=== PATIENT | female | born 1980 | race Caucasian/White ===

== ENCOUNTER → 2023-07-26 | Outpatient (BNV) | payer OTHER, SELFPAY | PROVIDERS: PCP Internal Medicine; Visit Provider Internal Medicine Nephrology | DX: N18.6 End stage renal disease (principal) | CPT/HCPCS: 90962 ==

== ENCOUNTER → 2023-08-26 | Outpatient (BNV) | payer OTHER, SELFPAY | PROVIDERS: PCP Internal Medicine; Visit Provider Internal Medicine Nephrology | DX: N18.6 End stage renal disease (principal) | CPT/HCPCS: 90961 ==

== ENCOUNTER → 2023-09-24 | Outpatient (BNV) | payer OTHER, SELFPAY | PROVIDERS: PCP Internal Medicine; Visit Provider Internal Medicine Nephrology | DX: N18.6 End stage renal disease (principal) | CPT/HCPCS: 90962 ==

== ENCOUNTER → 2023-10-25 | Outpatient (BNV) | payer OTHER, SELFPAY | PROVIDERS: PCP Internal Medicine; Visit Provider Internal Medicine Nephrology | DX: N18.6 End stage renal disease (principal) | CPT/HCPCS: 90962 ==

== ENCOUNTER → 2023-11-24 | Outpatient (BNV) | payer OTHER, SELFPAY | PROVIDERS: PCP Internal Medicine; Visit Provider Internal Medicine Nephrology | DX: N18.6 End stage renal disease (principal) | CPT/HCPCS: 90962 ==

== ENCOUNTER → 2024-02-24 | Outpatient (BNV) | payer OTHER, SELFPAY ==
--- OUTSIDE RECORDS SUMMARY | 2024-04-04 11:23 | XMS_ITS | Continuity of Care Document ---
Author Organization [facility] Address [address] [place] [address]- Care Team Providers Care Cloth Baler Name Role Phone Kristal Alvarez MD Primary Care Physician Encounter [facility] Date(s): 02/28/24 - 03/29/[address] [id number] Allergies, Adverse Reactions, Alerts Substance Reaction Severity Status sulfADIAZINE hives Active vancomycin Active Immunizations Given and Recorded Vaccine Date Status Refusal Reason SARS-CoV-2 (COVID-19) mRNA BNT-162b2 vac 01/01/21 Recorded SARS-CoV-2 (COVID-19) mRNA BNT-162b2 vac 12/10/20 Recorded influenza virus vaccine, inactivated 09/20/19 Sohail rded influenza virus vaccine, inactivated 09/15/12 Give n influenza virus vaccine, inactivated 05/25/11 Sohail rded tetanus-diphtheria toxoids (Td) 11/20/14 Recorded tetanus-diphtheria toxoids (Td) 02/13/09 Recorded pneumococcal 23-valent vaccine 09/15/12 Given pneumococcal 23-valent vaccine 04/17/08 Recorded Medications acetaminophen 325 mg oral tablet 63 each, 0 Refill(s), TAKE 3 TABLETS BY MOUTH THREE TIMES A DAY FOR 7 DAYS, Refills 0, 10/18/23 14:30:00 EDT, Partial fill upon patient request if the prescription is for a schedule II opioid drug. Start Date: 10/18/23 Status: Ordered albuterol CFC free 90 mcg/inh inhalation aerosol 2, puffs, Inhalation, Every 4 hours, PRN, # 8.5 Gm, Refills 11, Tot. Refills 11, Maintenance, 12/25/22 17:30:00 EDT, Aerosol, Route to Pharmacy Electronically, [id number], [facility], 170, cm, 11/25/22 10:38:0... Start Date: 12/25/22 Stop Date: 12/20/23 Status: Ordered Alcohol Pads See Instructions, # 200 each, Refills 1, Tot. Refills 1, Maintenance, to check blood sugar 4 times a day dx: T2DM ICD10: E11.9, 12/25/22 14:01:00 EDT, Supply, 170, cm, 11/25/22 10:38:00 EDT, Height, 146.2, kg, 11/02/22 5:48:00 EDT, Dry Weight Start Date: 12/25/22 Stop Date: 02/23/23 Status: Ordered amLODIPine 10 mg oral tablet 1 tablet, By Mouth, Daily, # 90 tablet, 3 Refills, Maintenance, 01/26/24 9:50:00 EDT, [facility], 164, cm, 01/20/24 13:25:00 EDT, Height, 140, kg, 01/15/24 6:54:00 EDT, Dry Weight Start Date: 01/26/24 Stop Date: 01/20/25 Status: Ordered apixaban 5 mg oral tablet 1 tablet = 5 mg, By Mouth, 2 times a day, # 60 tablet, 11 Refills, Maintenance, 07/21/23 16:42:00 EST, Tablet, [facility], Partial fill upon patient request if the prescription is fora schedule II opioid drug., 170, cm, 07/09/23 15:11... Start Date: 07/21/23 Stop Date: 07/15/24 Status: Ordered atorvastatin 20 mg oral tablet 1 tablet, By Mouth, Daily, # 90 tablet, 3 Refills, Maintenance, 05/27/23 9:56:00 EDT, [facility], 170, cm, 05/24/23 15:53:00 EDT, Height, 150, kg, 04/26/23 17:25:00 EDT, Dry Weight Start Date: 05/27/23 Stop Date: 05/21/24 Status: Ordered bisacodyl 10 mg rectal suppository 1 supp = 10 mg, Rectally, Daily, PRN for constipation, # 20 supp, 3 Refills, Maintenance, 09/03/23 16:21:00 EST, Suppository, [id number], Partial fill upon patient request if the prescription is for a schedule II opioid drug., 170, cm... Start Date: 09/03/23 Status: Ordered calcium acetate 667 mg oral tablet 3 tablet = 2,001 mg, By Mouth, 3 times a day, # 270 tablet, 0 Refills, Maintenance, 09/23/23 15:50:00 EST, Tablet, [facility][id number], Partial fill upon patient request if the prescription is for a schedule II opioid drug., 170, cm, 09/03/23... Start Date: 09/23/23 Stop Date: 10/23/23 Status: Ordered carvedilol 25 mg oral tablet 1, tablet, By Mouth, 2 times a day, # 180 tablet, Refills 3, Tot. Refills 3, Maintenance, 09/23/23 15:50:00 EST, Route to Pharmacy Electronically, [id number], 170, cm, 09/03/23 16:31:00 EST, Height, 141.6, kg, 08/04/23 23:57:00 EST, D... Start Date: 09/23/23 Stop Date: 09/17/24 Status: Ordered cholecalciferol 2000 intl units oral capsule 1 capsule = 50 mcg, By Mouth, Daily, 0 Refills, Maintenance, 08/06/21 13:22:00 EST, Capsule, Partial fill upon patient request if the prescription is for a schedule II opioid drug. Start Date: 08/06/21 Status: Ordered CUSTOM MOLDED ORTHOTIC SHOE / SHOE INSERT CUSTOM MOLDED ORTHOTIC SHOE / SHOE INSERT, See Instructions, # 1 each, Refills 0, Tot. Refills 0, Maintenance, use as directed DX: left great toe amputation, 01/16/22 8:24:00 EDT, Supply Start Date: 01/16/22 Status: Ordered dehumidifier dehumidifier, See Instructions, # 1 each, Refills 0, Tot. Refills 0, Maintenance, dx: asthma ICD10:J45.909 duration: 99, 12/03/23 14:07:00 EDT, Supply Start Date: 12/03/23 Status: Ordered disposable bedliners disposable bedliners, See Instructions, # 60 each, Refills 11, Tot. Refills 11, Maintenance, dx: urinary and fecal incontinence, diabetic neuropathy ICD10: R15.9 duration: 99 needs 2 per night, 03/02/24 10:01:00 EDT, Supply Start Date: 03/02/24 Status: Ordered doxycycline hyclate 100 mg oral tablet = 100 mg, By Mouth, Every 12 hours, for 14 days, or capsule, # 28 each, 1 Refills, Acute 04/21/24 13:29:00 EDT, 03/24/24 13:29:00 EDT, Tablet, [id number], Partial fill upon patient request if the prescription is for a schedule II opio... Start Date: 03/24/24 Stop Date: 04/21/24 Status: Ordered Freestyle Lite Monitor See Instructions, # 1 each, Refills 0, Tot. Refills 0, Maintenance, dx: T2DM ICD10: E11.9 to check glucose levels 3 times a day with meals and at bedtime duration: 99, 09/05/21 8:38:00 EST, Supply, 167.6, cm, 09/02/21 8:05:00 EST, Height, 140, kg,... Start Date: 09/05/21 Status: Ordered Freestyle Lite Test Strips See Instructions, # 200 each, Refills 11, Tot. Refills 11, Maintenance, to test 4 times a day dx: T2DM ICD10: E11.9 duration:, 09/03/23 16:23:00 EST, Supply, 170, cm, 09/03/23 16:09:00 EST, Height, 141.6, kg, 08/04/23 23:57:00 EST, Dry Weight Start Date: 09/03/23 Stop Date: 08/28/24 Status: Ordered gabapentin 400 mg oral capsule See Instructions, TAKE 1 CAPSULE BY MOUTH DAILY, # 60 capsule, Refills 0, Tot. Refills 0, Maintenance, 03/22/24 12:13:00 EDT, Instructions Replace Required Details, Route to Pharmacy Electronically, [facility], 164, cm, 02/08/24 11:45:... Start Date: 03/22/24 Status: Ordered glucerna shake glucerna shake, See Instructions, # 60 each, Refills 11, Tot. Refills 11, Maintenance, drink two shakes per day for management of T2DM dx: T2DM w/ macrovascular complications ICD10: E11.9 duration: 99, 09/11/21 9:02:00 EST, Supply Start Date: 09/11/21 Status: Ordered home blood pressure monitor home blood pressure monitor, See Instructions, # 1 each, Refills 0, Tot. Refills 0, Maintenance, dx: hypertension ICD10: I10 duration: 99, 03/08/23 16:59:00 EDT, Supply Start Date: 03/08/23 Status: Ordered hydrALAZINE 100 mg oral tablet TAKE 1 TABLET BY MOUTH THREE TIMES DAILY Start Date: 11/01/22 Status: Ordered insulin glargine 100 u/ml subcutaneous solution = 45 units, Subcutaneous Injection, Daily in AM, # 10 mL, 11 Refills, Maintenance, 03/25/23 9:48:00EDT, Solution, [facility]., decrease in dose, 170, cm, 01/29/23 13:41:00 EDT, Height, 146.2, kg, 11/02/22 5:48:00 EDT, Dry Weight Start Date: 03/25/23 Stop Date: 03/19/24 Status: Ordered Insulin Lispro KwikPen 100 units/mL injectable solution See Instructions, 6-16U SUBCUTANEOUSLY 3X DAY WITH MEALS BASED ON SLIDING SCALE 100-149=6U 150-199=8U 200-249= 10U 250-299=12U 300-349=14U 350- 399=16U CALL MD IF >400, # 15 mL, 11 Refills, Maintenance, 03/22/24 12:14:00 EDT, [facility].. Start Date: 03/22/24 Status: Ordered Insulin Syringe, BD Ultra-Fine 0.5 cc 31 G x 8 mm (5/16in) See Instructions, # 200 each, Refills 5, Tot. Refills 5, Maintenance, to inject glargine and lisprofour time a day use as directed for Type 2 Diabetes Mellitus, 04/01/22 8:49:00 EDT, Supply, 170, cm, 01/16/22 7:58:00 EDT, Height, 137.6, kg, 11/11/21... Start Date: 04/01/22 Stop Date: 09/28/22 Status: Ordered Insulin Syringe, BD Ultra-Fine 0.5 cc 31 G x 8 mm (5/16in) See Instructions, # 200 each, Refills 4, Tot. Refills 4, Maintenance, to inject glargine and lisprofour time a day use as directed for Type 2 Diabetes Mellitus, 05/24/23 14:02:00 EDT, Supply, 170, cm, 01/29/23 13:41:00 EDT, Height, 146.2, kg, ... Start Date: 05/24/23 Stop Date: 10/21/23 Status: Ordered Lantus Solostar Pen 100 units/mL subcutaneous solution 15 mL, 0 Refill(s), 0 Refills, 10/18/23 14:30:00 EDT, Partial fill upon patient request if the prescription is for a schedule II opioid drug. Start Date: 10/18/23 Status: Ordered left TMA shoe insert left TMA shoe insert, See Instructions, # 1 each, Refills 0, Tot. Refills 0, Maintenance, left TMA shoe insert, 10/18/23 14:47:00 EDT, Supply Start Date: 10/18/23 Status: Ordered life alert system life alert system, See Instructions, # 1 each, Refills 0, Tot. Refills 0, Maintenance, dx: T2DM with macrovascular complications, toe amputation, debility ICD10: R54 duration: 99, 12/03/23 14:09:00 EDT, Supply Start Date: 12/03/23 Status: Ordered MELATONIN 10MG TABLETS (1MG LEMON) MELATONIN 10MG TABLETS (1MG LEMON), 1, tablet, By Mouth, Daily at bedtime, # 30 tablet, 3 Refills, Maintenance, 12/07/22 13:33:00 EDT, 170, cm, 11/25/22 10:38:00 EDT, Height, 146.2, kg, 11/02/22 5:48:00 EDT, Dry Weight Start Date: 12/07/22 Status: Ordered MELATONIN 10MG TABLETS (1MG LEMON) TAKE 1 TABLET BY MOUTH EVERY NIGHT AT BEDTIME Start Date: 11/01/22 Status: Ordered Melatonin 5 mg oral tablet See Instructions, TAKE 2 TABLETS BY MOUTH DAILY AT BEDTIME NEEDED FOR INSOMNIA, # 60 tablet, 3 Refills, Maintenance, 01/26/24 15:08:00 EDT, [id number], 164, cm, 01/20/24 13:25:00 EDT, Height, 140, kg, 01/15/24 6:54:00 EDT, Dry Weight Start Date: 01/26/24 Status: Ordered MiraLax oral powder for reconstitution = 17 Gm, By Mouth, Daily, PRN Constipation, dissolve in water before taking, # 255 Gm, 0 Refills, Maintenance, 03/04/23 17:25:00 EDT, REC Powder, [facility][id number], Partial fill upon patient request if the prescription is for a schedule II o... Start Date: 03/04/23 Status: Ordered nicotine 21 mg/24 hr transdermal film, extended release 28 each, 0 Refill(s), PLACE 1 PATCH TOPICALLY DAILY, 0 Refills, 10/18/23 14:30:00 EDT, Partial fillupon patient request if the prescription is for a schedule II opioid drug. Start Date: 10/18/23 Status: Ordered oxyCODONE 10 mg oral tablet 1 tablet = 10 mg, By Mouth, Every 12 hours, for 30 days, # 60 tablet, 0 Refills, Acute 04/28/24 12:08:00 EDT, 03/29/24 12:08:00 EDT, Tablet, [id number], Partial fill upon patient request if the prescription is for a schedule II opioid... Start Date: 03/29/24 Stop Date: 04/28/24 Status: Ordered pantiliners pantiliners, See Instructions, # 120 each, Refills 11, Tot. Refills 11, Maintenance, dx: urinary incontinence, diabetic neuropathy ICD10: R32 duration: 99 needs 2 per night, 01/29/23 15:05:00 EDT, Supply Start Date: 01/29/23 Status: Ordered Pen [place], 32 G x 4 mm BD Ultra Fine III See instructions, # 200 each, Refills 5, Tot. Refills 5, Maintenance, Dx: T2DM to inject insulin 3 times a day and in am, 03/25/23 11:53:00 EDT, Supply, 170, cm, 01/29/23 13:41:00 EDT, Height, 146.2,kg, 11/02/22 5:48:00 EDT, Dry Weight Start Date: 03/25/23 Stop Date: 09/21/23 Status: Ordered prevail max bladder control pads prevail max bladder control pads, See Instructions, # 240 each, Refills 11, Tot. Refills 11, Maintenance, dx: total incontinence, T2DM ICD10: R32, E11.4 duration: , 03/08/24 13:26:00 EDT, Supply Start Date: 03/08/24 Status: Ordered Protective Ointment with Vitamins A&D topical ointment See Instructions, Topically 4 times a day to affected areas, # 120 Gm, 11 Refills, Maintenance, 09/03/23 16:21:00 EST, [id number], Partial fill upon patient request if the prescription is for a schedule II opioid drug., Topically 4 ti... Start Date: 09/03/23 Status: Ordered pulse oximeter pulse oximeter, See Instructions, # 1 each, Refills 0, Tot. Refills 0, Maintenance, to monitor pulse dx: ESRD on dialysis ICD10: N18. 6, 03/08/23 16:59:00 EDT, Supply Start Date: 03/08/23 Status: Ordered sevelamer carbonate 800 mg oral tablet 1 tablet, By Mouth, 3 times a day, # 180 tablet, 3 Refills, Maintenance, 02/25/24 16:28:00 EDT, [facility], 164, cm, 02/08/24 11:45:00 EDT, Height, 140, kg, 01/15/24 6:54:00 EDT, Dry Weight Start Date: 02/25/24 Status: Ordered shower grab bars shower grab bars, See Instructions, # 2 each, Refills 0, Tot. Refills 0, Maintenance, dx: T2DM withmacrovascular complications, toe amputation, debility ICD10: R54 duration: , 12/03/23 14:08:00 EDT, Supply Start Date: 12/03/23 Status: Ordered torsemide 20 mg oral tablet 3 tablet = 60 mg, By Mouth, 2 times a day, # 180 tablet, 3 Refills, Maintenance, 01/26/24 9:49:00 EDT, Tablet, [facility] 3, Partial fill upon patient request if the prescription is for aschedule II opioid drug., 164, cm, 01/20/24 13:25:0... Start Date: 01/26/24 Stop Date: 05/25/24 Status: Ordered traZODone 100 mg oral tablet 200 mg, 2, tablet, By Mouth, Daily at bedtime, # 60 tablet, Refills 1, Tot. Refills 1, Maintenance,03/22/24 12:14:00 EDT, Route to Pharmacy Electronically, [facility], Partial fill upon patient request if the prescription is for a matthieu... Start Date: 03/22/24 Stop Date: 05/21/24 Status: Ordered traZODone 100 mg oral tablet 150 mg, 1.5, tablet, By Mouth, Daily at bedtime, # 45 tablet, Refills 5, Tot. Refills 5, Maintenance, 09/03/23 16:25:00 EST, Route to Pharmacy Electronically, [id number], 170, cm, 09/03/23 16:31:00 EST, Height, 141.6, kg, 08/04/23 23:... Start Date: 09/03/23 Status: Ordered Trulicity Pen 0.75 mg/0.5 mL subcutaneous solution 0.5 mL = 0.75 mg, Subcutaneous Injection, Every week, for weight loss, # 2 mL, 3 Refills, Maintenance, 03/15/24 16:35:00 EDT, Solution, [facility], Partial fill upon patient request if the prescription is for a schedule II opioid drug.... Start Date: 03/15/24 Stop Date: 07/05/24 Status: Ordered Use as directed Use as directed, See Instructions, # 1 each, Refills 0, Tot. Refills 0, Maintenance, Left T3-T5 TMAPost Op Wedge. Wedge Shoe, 05/24/23 16:10:00 EDT, Supply, 170, cm, 05/24/23 15:53:00 EDT, Height, 150, kg, 04/26/23 17:25:00 EDT, Dry Weight Start Date: 05/24/23 Status: Ordered venlafaxine 75 mg oral tablet 1.5 tablet, By Mouth, Daily in AM, # 135 tablet, 3 Refills, Maintenance, 12/30/23 12:08:00 EDT, [facility] 170, cm, 12/07/23 14:18:00 EDT, Height, 141.6, kg, 08/04/23 23:57:00 EST, Dry Weight Start Date: 12/30/23 Stop Date: 12/24/24 Status: Ordered Problem List Condition Confirmation Course Effective Dates Status H ealth Status Informant Anemia Confirmed Active Anxiety Confirmed Active 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 Asthma Confirmed Active Atrial flutter Confirmed Active Bipolar disorder Confirmed Active Bipolar 1 disorder Confirmed Active CKD (chronic kidney disease) Confirmed Active ESRD on hemodialysis MWF 1 Confirmed Active Diabetes mellitus Confirmed Active Diabetic infection of left foot Confirmed Active Controlled substance agreement signed 02/08/24 Confirmed Active GERD (gastroesophageal reflux disease) Confirmed Active Spinal hemangioma Confirmed Active Status post transmetatarsal amputation of right foot Confirmed Active Hyperlipidemia Confirmed Active Hypertension Confirmed Active Diabetic foot infection Confirmed Active Nail ingrowing Confirmed Active Morbid obesity Confirmed Active Tobacco dependence syndrome Confirmed Active [facility] tel [phone] fax [phone] Social History Social History Type Response Smoking Status 10 or more cigarette s (1/2 pack or more)/day in last 30 days entered on: 11/11/21 Sex Patient Care team information Care Team Personnel Name: Rebeca Pete RN Position: [facility] RN Member Role: Primary Care Nurse Name: Rebeca Khan RN Position: [facility] SN RN Member Role: Primary Care Nurse Name: Adams Joy MD Position: [facility] Renal MD Member Role: Lifetime Consulting Physician Address: Address: [address] [place] [address] [address] [facility] [place] [address]- Name: Korin Solares RN Position: S RN Member Role: Primary Care Nurse Name: Flor Collado RN Position: [facility] Onco RN Member Role: Primary Care Nurse Name: Aliya Latham RN Position: [facility] Rad RN Member Role: Primary Care Nurse Name: Callie Reagan RN Position: [facility] RN Member Role: Primary Care Nurse Name: Korin Lopez RN Position: [facility] RN Member Role: Primary Care Nurse Name: Kim Means Position: [facility] Associate Professional Member Role: Lifetime Consulting Provider Address: Address: [address] [place] [address] [address] [facility] [address]- [place] Name: Netta Brown RN Position: [facility] MR W/ Merge Member Role: Primary Care Nurse Name: Marichuy Broussard RN Position: [facility] RN Member Role: Primary Care Nurse Name: Irineo Gale RN Position: [facility] RN Member Role: Primary Care Nurse Name: Radha Gayle RN Position: [facility] AMB Nurse Member Role: Primary Care Nurse Name: Kendall Jasso RN Position: [facility] RN Member Role: Primary Care Nurse Name: Yecenia Quiles RN Position: [facility] RN Member Role: Primary Care Nurse Name: Joanna Boston RN Position: [facility] RN Member Role: Lifetime Consulting Physician Name: Aliya Nuñez NP Position: [facility] PCO Associate Professional Member Role: Primary Care Nurse Address: Address: [address] [place] [phone]- [place] Name: Khloe Walsh RN Position: [facility] RN Member Role: Primary Care Nurse Name: Mila Jiang RN Position: [facility] RN Member Role: Primary Care Nurse Name: Darshana Estrada RN Position: [facility] RN Member Role: Primary Care Nurse Name: Hank Velasquez III, RN Position: [facility] RN Member Role: Primary Care Nurse Name: Matias Rivera Position: [facility] Associate Professional Member Role: Lifetime Consulting Provider Address: Address: [address] [place] [address]- [place] Name: Leonid Kitchen Jr, RN Position: [facility] AMBERLY RN W/OE and Tasks Member Role: Primary Care Nurse Name: Mayur Cadena RN Position: [facility] RN Member Role: Primary Care Nurse Name: Rebeca Jaquez NP Position: [facility] PCO Associate Professional Member Role: Primary Care Nurse Address: Address: [address] [place] [address] [place] [address]- [place] Name: Dalton Bills MD Position: [facility] Renal MD Member Role: Lifetime Consulting Physician Address: Address: [address] [facility] [place] [address]- Name: Jagdeep Delcid RN Position: S RN Member Role: Primary Care Nurse Name: Jen Kirk RN Position: [facility] RN Member Role: Primary Care Nurse Name: Denisa Garcia RN Position: S RN Member Role: Primary Care Nurse Name: Janiya Mathews Position: [facility] Associate Professional Member Role: Lifetime Consulting Provider Address: Address: [address] [facility] [place] [address]- Name: Galo Jiang MD Position: [facility] Renal MD Member Role: Lifetime Consulting Physician Address: Address: [address] [place] [address] [facility] [place] [address]- Name: Saranya Kaufman RN Position: [facility] OB RN Member Role: Primary Care Nurse Name: Aliya Reeves RN Position: [facility] AMB Nurse Member Role: Primary Care Nurse Name: Trista Pablo RN Position: [facility] RN Member Role: Primary Care Nurse Name: Debbi Hernández RN Position: [facility] RN Member Role: Primary Care Nurse Name: Kristal Alvarez MD Position: [facility] Physician - Primary Care Member Role: PCP Address: Address: [address] [place] [address]- Name: Alyce Esteban RN, I Position: [facility] RN Member Role: Primary Care Nurse Name: Aspen Leon Position: S RN Member Role: Primary Care Nurse Care Team Related Persons Name: CASSIDY FALLCANDIDA Address: [address] [place] [address] Name: DEEPIKA BENJAMIN Address: [address] [place] [address] Name: DEEPIKA BENJAMIN Address: [address] [place] [address] Name: ERROL CONWAY
--- OUTSIDE RECORDS SUMMARY | 2024-04-04 11:23 | XMS_ITS | Continuity of Care Document ---
Author Organization [facility] Address [address] [place] [address]- Care Team Providers Care Wooden Barrel Mechanic Name Role Phone Kristal Alvarez MD Primary Care Physician Encounter [facility] [place] Date(s): 02/25/24 - 03/26/[address] [address] Allergies, Adverse Reactions, Alerts Substance Reaction Severity [...] 17:30:00 EDT, Aerosol, Route to Pharmacy Electronically, [id number], [facility], 170, cm, 11/25/22 10:38:0... Start Date: [...] tablet, 3 Refills, Maintenance, 01/26/24 9:50:00 EDT, [facility] 3, 164, cm, 01/20/24 13:25:00 EDT, Height, 140, kg, 01/15/24 6:54:00 EDT, Dry Weight Start Date: 01/26/24 Stop Date: 01/20/25 Status: Ordered apixaban 5 mg oral tablet 1 tablet = 5 mg, By Mouth, 2 times a day, # 60 tablet, 11 Refills, Maintenance, 07/21/23 16:42:00 EST, Tablet, [facility], Partial fill upon patient request if the prescription is fora schedule II opioid drug., 170, cm, 07/09/23 15:11... Start Date: 07/21/23 Stop Date: 07/15/24 Status: Ordered atorvastatin 20 mg oral tablet 1 tablet, By Mouth, Daily, # 90 tablet, 3 Refills, Maintenance, 05/27/23 9:56:00 EDT, [facility], 170, cm, 05/24/23 15:53:00 EDT, Height, 150, kg, 04/26/23 17:25:00 EDT, Dry Weight Start Date: 05/27/23 Stop Date: 05/21/24 Status: Ordered bisacodyl 10 mg rectal suppository 1 supp = 10 mg, Rectally, Daily, PRN for constipation, # 20 supp, 3 Refills, Maintenance, 09/03/23 16:21:00 EST, Suppository, [facility][id number], Partial fill upon patient request if the prescription is for a schedule II opioid drug., 170, cm... Start Date: 09/03/23 Status: Ordered calcium acetate 667 mg oral tablet 3 tablet = 2,001 mg, By Mouth, 3 times a day, # 270 tablet, 0 Refills, Maintenance, 09/23/23 15:50:00 EST, Tablet, [facility] #[id number], Partial fill upon patient request if the prescription is for a schedule II opioid drug., 170, cm, 09/03/23... Start Date: 09/23/23 Stop Date: 10/23/23 Status: Ordered carvedilol 25 mg oral tablet 1, tablet, By Mouth, 2 times a day, # 180 tablet, Refills 3, Tot. Refills 3, Maintenance, 09/23/23 15:50:00 EST, Route to Pharmacy Electronically, [facility] #[id number], 170, cm, 09/03/23 16:31:00 EST, Height, 141.6, [...] 04/21/24 13:29:00 EDT, 03/24/24 13:29:00 EDT, Tablet, [facility] #[id number], Partial fill upon patient request if the [...] Replace Required Details, Route to Pharmacy Electronically, [facility], 164, cm, 02/08/24 11:45:... Start Date: [...] mL, 11 Refills, Maintenance, 03/25/23 9:48:00EDT, Solution, [facility] decrease in dose, 170, cm, 01/29/23 [...] mL, 11 Refills, Maintenance, 03/22/24 12:14:00 EDT, [facility].. Start Date: 03/22/24 Status: Ordered Insulin [...] tablet, 3 Refills, Maintenance, 01/26/24 15:08:00 EDT, [facility] #[id number], 164, cm, 01/20/24 13:25:00 EDT, Height, 140, kg, 01/15/24 6:54:00 EDT, Dry Weight Start Date: 01/26/24 Status: Ordered MiraLax oral powder for reconstitution = 17 Gm, By Mouth, Daily, PRN Constipation, dissolve in water before taking, # 255 Gm, 0 Refills, Maintenance, 03/04/23 17:25:00 EDT, REC Powder, [facility] #[id number], Partial fill upon patient request if the [...] days, # 60 tablet, 0 Refills, Acute 03/29/24 11:16:00 EDT, 02/28/24 11:16:00 EDT, Tablet, [facility], Partial fill upon patient request if the prescription is for a schedule II opioid... Start Date: 02/28/24 Stop Date: 03/29/24 Status: Ordered pantiliners pantiliners, See Instructions, # 120 each, Refills 11, Tot. Refills 11, Maintenance, dx: urinary incontinence, diabetic neuropathy ICD10: R32 duration: 99 needs 2 per night, 01/29/23 15:05:00 EDT, Supply Start Date: 01/29/23 Status: Ordered Pen [place], 32 G x 4 mm BD Ultra [...] Gm, 11 Refills, Maintenance, 09/03/23 16:21:00 EST, [facility] #[id number], Partial fill upon patient request if the [...] tablet, 3 Refills, Maintenance, 02/25/24 16:28:00 EDT, [facility], 164, cm, 02/08/24 11:45:00 EDT, Height, [...] 3 Refills, Maintenance, 01/26/24 9:49:00 EDT, Tablet, [facility] 3, Partial fill upon patient request if the prescription is for aschedule II opioid drug., 164, cm, 01/20/24 13:25:0... Start Date: 01/26/24 Stop Date: 05/25/24 Status: Ordered traZODone 100 mg oral tablet 200 mg, 2, tablet, By Mouth, Daily at bedtime, # 60 tablet, Refills 1, Tot. Refills 1, Maintenance,03/22/24 12:14:00 EDT, Route to Pharmacy Electronically, [facility], Partial fill upon patient request if the prescription is for a matthieu... Start Date: 03/22/24 Stop Date: 05/21/24 Status: Ordered traZODone 100 mg oral tablet 150 mg, 1.5, tablet, By Mouth, Daily at bedtime, # 45 tablet, Refills 5, Tot. Refills 5, Maintenance, 09/03/23 16:25:00 EST, Route to Pharmacy Electronically, [facility] #[id number], 170, cm, 09/03/23 16:31:00 EST, Height, 141.6, kg, 08/04/23 23:... Start Date: 09/03/23 Status: Ordered Trulicity Pen 0.75 mg/0.5 mL subcutaneous solution 0.5 mL = 0.75 mg, Subcutaneous Injection, Every week, for weight loss, # 2 mL, 3 Refills, Maintenance, 03/15/24 16:35:00 EDT, Solution, [facility], Partial fill upon patient request if [...] tablet, 3 Refills, Maintenance, 12/30/23 12:08:00 EDT, [facility] 170, cm, 12/07/23 14:18:00 [...] dependence syndrome Confirmed Active [facility] tel [phone] fax [phone] Social History Social History Type Response Smoking Status 10 or more cigarette s (1/2 pack or more)/day in last 30 days entered on: 11/11/21 Sex Patient Care team information Care Team Personnel Name: Rebeca Pete RN Position: [facility] RN Member Role: Primary Care Nurse Name: Rebeca Khan RN Position: [facility] SN RN Member Role: Primary Care Nurse Name: Adams Joy MD Position: [facility] Renal MD Member Role: Lifetime Consulting Physician Address: Address: [address] [place] [address] [address] [place] [address]- Name: Korin Solares RN Position: S RN Member Role: Primary Care Nurse Name: Flor Collado RN Position: [facility] Onco RN Member Role: Primary Care Nurse Name: Aliya Latham RN Position: [facility] Rad RN Member Role: Primary Care Nurse Name: Callie Reagan RN Position: [facility] RN Member Role: Primary Care Nurse Name: Korin Lopez RN Position: [facility] RN Member Role: Primary Care Nurse Name: Kim Means Position: [facility] Associate Professional Member Role: Lifetime Consulting Provider Address: Address: [address] [place] [address] [facility] [address]- [place] Name: Netta Brown RN Position: [facility] MR W/ Merge Member Role: Primary Care Nurse Name: Marichuy Broussard RN Position: [facility] RN Member Role: Primary Care Nurse Name: Irineo Gale RN Position: [facility] RN Member Role: Primary Care Nurse Name: Radha Gayle RN Position: [facility] AMB Nurse Member Role: Primary Care Nurse Name: Kendall Jasso RN Position: [facility] RN Member Role: Primary Care Nurse Name: Yecenia Quiles RN Position: [facility] RN Member Role: Primary Care Nurse Name: Joanna Boston RN Position: [facility] RN Member Role: Lifetime Consulting Physician Name: Aliya Nuñez NP Position: [facility] PCO Associate Professional Member Role: Primary Care Nurse Address: Address: [address] [place] [address]- [place] Name: Khloe Walsh RN Position: [facility] RN Member Role: Primary Care Nurse Name: Mila Jiang RN Position: [facility] RN Member Role: Primary Care Nurse Name: Darshana Estrada RN Position: [facility] RN Member Role: Primary Care Nurse Name: Hank Velasquez III, RN Position: [facility] RN Member Role: Primary Care Nurse Name: Matias Rivera Position: [facility] Associate Professional Member Role: Lifetime Consulting Provider Address: Address: [address] [place] [address]- [place] Name: Leonid Kitchen Jr, RN Position: [facility] ED RN W/OE and Tasks Member Role: Primary Care Nurse Name: Mayur Cadena RN Position: [facility] RN Member Role: Primary Care Nurse Name: Rebeca Jaquez NP [facility] Associate Professional Member Role: Primary Care Nurse Address: Address: [address] [place] [address] [place] [address]- [place] Name: Dalton Bills MD Position: [facility] Renal MD Member Role: Lifetime Consulting Physician Address: Address: [address] [facility] [address] [facility] [place] [place] [address]- Name: Jagdeep Delcid RN Position: S RN Member Role: Primary Care Nurse Name: Jen Kirk RN Position: S RN Member Role: Primary Care Nurse Name: Denisa Garcia RN Position: S RN Member Role: Primary Care Nurse Name: Janiya Mathews Position: [facility] Associate Professional Member Role: Lifetime Consulting Provider Address: Address: [address] [facility] [place] [address]- Name: Galo Jiang MD Position: [facility] Renal MD Member Role: Lifetime Consulting Physician Address: Address: [address] [place] [address] [facility] [place] [address]- Name: Saranya Kaufman RN Position: [facility] OB RN Member Role: Primary Care Nurse Name: Aliya Reeves RN Position: [facility] AMB Nurse Member Role: Primary Care Nurse Name: Trista Pablo RN Position: [facility] RN Member Role: Primary Care Nurse Name: Debbi Hernández RN Position: [facility] RN Member Role: Primary Care Nurse Name: Kristal Alvarez MD Position: [facility] Physician - Primary Care Member Role: PCP Address: Address: [address] [place] [address]- Name: Alyce Esteban RN, I Position: [facility] RN Member Role: Primary Care Nurse Name: Aspen Leon Position: [facility] RN Member Role: Primary Care Nurse Care Team Related Persons Name: CASSIDY BILLYLOLISCANDIDA Address: home [address] [place] [address] Name: DEEPIKA BENJAMIN Address: [address] [place] [address] Name: DEEPIKA BENJAMIN Address: [address] [place] [address] Name: ERROL CONWAY
--- OUTSIDE RECORDS SUMMARY | 2024-04-04 11:25 | XMS_ITS | Continuity of Care Document ---
Author Organization [facility] Address [address] [place] [address]- Care Team Providers Care Pediatric Dental Assistant Name Role Phone Kristal Alvarez MD Primary Care Physician Encounter [facility] [place] Date(s): 12/30/23 - 02/25/[address] [id number] Attending Physician: Camille Robert CNM Admitting Physician: Camille Robert CNM Referring Physician: Camille Robert CNM Allergies, Adverse Reactions, Alerts Substance Reaction Severity [...] 17:30:00 EDT, Aerosol, Route to Pharmacy Electronically, [id number], [facility], 170, cm, 11/25/22 10:38:0... Start Date: 12/25/22 [...] tablet, 3 Refills, Maintenance, 01/26/24 9:50:00 EDT, [facility] 3, 164, cm, 01/20/24 13:25:00 EDT, Height, 140, kg, 01/15/24 6:54:00 EDT, Dry Weight Start Date: 01/26/24 Stop Date: 01/20/25 Status: Ordered apixaban 5 mg oral tablet 1 tablet = 5 mg, By Mouth, 2 times a day, # 60 tablet, 11 Refills, Maintenance, 07/21/23 16:42:00 EST, Tablet, [facility], Partial fill upon patient request if the prescription is fora schedule II opioid drug., 170, cm, 07/09/23 15:11... Start Date: 07/21/23 Stop Date: 07/15/24 Status: Ordered atorvastatin 20 mg oral tablet 1 tablet, By Mouth, Daily, # 90 tablet, 3 Refills, Maintenance, 05/27/23 9:56:00 EDT, [facility], 170, cm, 05/24/23 15:53:00 EDT, Height, 150, kg, 04/26/23 17:25:00 EDT, Dry Weight Start Date: 05/27/23 Stop Date: 05/21/24 Status: Ordered bisacodyl 10 mg rectal suppository 1 supp = 10 mg, Rectally, Daily, PRN for constipation, # 20 supp, 3 Refills, Maintenance, 09/03/23 16:21:00 EST, Suppository, [facility] #[id number], Partial fill upon patient request if the prescription is for a schedule II opioid drug., 170, cm... Start Date: 09/03/23 Status: Ordered calcium acetate 667 mg oral tablet 3 tablet = 2,001 mg, By Mouth, 3 times a day, # 270 tablet, 0 Refills, Maintenance, 09/23/23 15:50:00 EST, Tablet, [facility] #[id number], Partial fill upon patient request if the prescription is for a schedule II opioid drug., 170, cm, 09/03/23... Start Date: 09/23/23 Stop Date: 10/23/23 Status: Ordered carvedilol 25 mg oral tablet 1, tablet, By Mouth, 2 times a day, # 180 tablet, Refills 3, Tot. Refills 3, Maintenance, 09/23/23 15:50:00 EST, Route to Pharmacy Electronically, [facility] #[id number], 170, cm, 09/03/23 16:31:00 EST, Height, 141.6, [...] Refills 0, Maintenance, dx: asthma ICD10:J45.909 duration: , 12/03/23 14:07:00 EDT, Supply Start Date: 12/03/23 Status: Ordered disposable bedliners disposable bedliners, See Instructions, # 60 each, Refills 11, Tot. Refills 11, Maintenance, dx: urinary and fecal incontinence, diabetic neuropathy ICD10: R15.9 duration: 99 needs 2 per night, 01/29/23 15:05:00 EDT, Supply Start Date: 01/29/23 Status: Ordered Freestyle Lite Monitor See Instructions, # 1 each, Refills 0, Tot. Refills 0, Maintenance, dx: T2DM ICD10: E11.9 to check glucose levels 3 times a day with meals and at bedtime duration: , 09/05/21 8:38:00 EST, Supply, 167.6, cm, 09/02/21 [...] BY MOUTH DAILY, # 60 capsule, Refills 5, Tot. Refills 5, Maintenance, 07/21/23 16:42:00 EST, Instructions Replace Required Details, Route to Pharmacy Electronically, [facility], 170, cm, 07/09/23 15:11:... Start Date: 07/21/23 Status: Ordered glucerna shake glucerna shake, See Instructions, # 60 each, Refills 11, Tot. 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 Start Date: 03/25/23 Status: Ordered Insulin Syringe, BD Ultra-Fine 0.5 [...] tablet, 3 Refills, Maintenance, 01/26/24 15:08:00 EDT, [facility] #[id number], 164, cm, 01/20/24 13:25:00 EDT, Height, 140, kg, 01/15/24 6:54:00 EDT, Dry Weight Start Date: 01/26/24 Status: Ordered MiraLax oral powder for reconstitution = 17 Gm, By Mouth, Daily, PRN Constipation, dissolve in water before taking, # 255 Gm, 0 Refills, Maintenance, 03/04/23 17:25:00 EDT, REC Powder, [facility] #[id number], Partial fill upon patient request if the prescription is for a schedule II o... Start Date: 03/04/23 Status: Ordered nicotine 21 mg/24 hr transdermal film, extended release 28 each, 0 Refill(s), PLACE 1 PATCH TOPICALLY DAILY, 0 Refills, 10/18/23 14:30:00 EDT, Partial fillupon patient request if the prescription is for a schedule II opioid drug. Start Date: 10/18/23 Status: Ordered pantiliners pantiliners, See Instructions, # 120 each, Refills 11, Tot. Refills 11, Maintenance, dx: urinary incontinence, diabetic neuropathy ICD10: R32 duration: 99 needs 2 per night, 01/29/23 15:05:00 EDT, Supply Start Date: 01/29/23 Status: Ordered Pen [place], 32 G x 4 mm BD Ultra [...] total incontinence, T2DM ICD10: R32, E11.4 duration: 99, 01/03/24 8:49:00 EDT, Supply Start Date: 01/03/24 Status: Ordered Protective Ointment with Vitamins A&D topical ointment See Instructions, Topically 4 times a day to affected areas, # 120 Gm, 11 Refills, Maintenance, 09/03/23 16:21:00 EST, [facility] #[id number], Partial fill upon patient request if the [...] tablet, 3 Refills, Maintenance, 02/25/24 16:28:00 EDT, [facility], 164, cm, 02/08/24 11:45:00 EDT, Height, 140, kg, 01/15/24 6:54:00 EDT, Dry Weight Start Date: 02/25/24 Status: Ordered shower grab bars shower grab bars, See Instructions, # 2 each, Refills 0, Tot. Refills 0, Maintenance, dx: T2DM withmacrovascular complications, toe amputation, debility ICD10: R54 duration: 99, 12/03/23 14:08:00 EDT, Supply Start Date: 12/03/23 Status: Ordered torsemide 20 mg oral tablet 3 tablet = 60 mg, By Mouth, 2 times a day, # 180 tablet, 3 Refills, Maintenance, 01/26/24 9:49:00 EDT, Tablet, [facility], Partial fill upon patient request if the prescription is for aschedule II opioid drug., 164, cm, 01/20/24 13:25:0... Start Date: 01/26/24 Stop Date: 05/25/24 Status: Ordered traZODone 100 mg oral tablet 200 mg, 2, tablet, By Mouth, Daily at bedtime, # 60 tablet, Refills 11, Tot. Refills 11, Maintenance, 02/08/24 12:28:00 EDT, Route to Pharmacy Electronically, [facility] #[id number], Partial fill upon patient request if the prescription is for a... Start Date: 02/08/24 Stop Date: 02/02/25 Status: Ordered traZODone 100 mg oral tablet 150 mg, 1.5, tablet, By Mouth, Daily at bedtime, # 45 tablet, Refills 5, Tot. Refills 5, Maintenance, 09/03/23 16:25:00 EST, Route to Pharmacy Electronically, [facility] #[id number], 170, cm, 09/03/23 16:31:00 EST, Height, 141.6, kg, 08/04/23 23:... Start Date: 09/03/23 Status: Ordered Use as directed Use as [...] tablet, 3 Refills, Maintenance, 12/30/23 12:08:00 EDT, [facility] 170, cm, 12/07/23 14:18:00 EDT, Height, [...] dependence syndrome Confirmed Active [facility] tel [phone] fax [phone] Social History Social History Type Response Smoking Status 10 or more cigarette s (1/2 pack or more)/day in last 30 days entered on: 11/11/21 Sex Patient Care team information Care Team Personnel Name: Rebeca Pete RN Position: [facility] RN Member Role: Primary Care Nurse Name: Rebeca Khan RN Position: [facility] SN RN Member Role: Primary Care Nurse Name: Adams Joy MD Position: [facility] Renal MD Member Role: Lifetime Consulting Physician Address: Address: [address] [place] [address] [address] [place] [address]- [place] Name: Korin Solares RN Position: [facility] RN Member Role: Primary Care Nurse Name: Flor Collado RN Position: [facility] Onco RN Member Role: Primary Care Nurse Name: Aliya Latham RN Position: [facility] Rad RN Member Role: Primary Care Nurse Name: Callie Reagan RN Position: [facility] RN Member Role: Primary Care Nurse Name: Korin Lopez RN Position: [facility] RN Member Role: Primary Care Nurse Name: Kim Means Position: [facility] Associate Professional Member Role: Lifetime Consulting Provider Address: Address: [address] [place] [address] [address] [place] [address]- [place] Name: Netta Brown RN Position: [facility] MR W/ Merge Member Role: Primary Care Nurse Name: Marichuy Broussard RN Position: [facility] RN Member Role: Primary Care Nurse Name: Irineo Gale RN Position: [facility] RN Member Role: Primary Care Nurse Name: Radha Gayle RN Position: [facility] AMB Nurse Member Role: Primary Care Nurse Name: Kendall Jasso RN Position: [facility] RN Member Role: Primary Care Nurse Name: Yecenia Quiles RN Position: [facility] RN Member Role: Primary Care Nurse Name: Joanna Boston RN Position: [facility] RN Member Role: Lifetime Consulting Physician Name: Aliya Nuñez NP Position: [facility] PCO Associate Professional Member Role: Primary Care Nurse Address: Address: [address] [place] [address]- [place] Name: Khloe Walsh RN Position: [facility] RN Member Role: Primary Care Nurse Name: Mila Jiang RN Position: [facility] RN Member Role: Primary Care Nurse Name: Darshana Estrada RN Position: [facility] RN Member Role: Primary Care Nurse Name: Hank Velasquez III, RN Position: [facility] RN Member Role: Primary Care Nurse Name: Matias Rivera Position: [facility] Associate Professional Member Role: Lifetime Consulting Provider Address: Address: [address] [place] [address]- Name: Fidelina Phillips RNLeonid Position: [facility] ED RN W/OE and Tasks Member Role: Primary Care Nurse Name: Mayur Cadena RN Position: [facility] RN Member Role: Primary Care Nurse Name: Rebeca Jaquez NP Position: [facility] PCO Associate Professional Member Role: Primary Care Nurse Address: Address: [address] [place] [address]- Name: Dalton Bills MD Position: [facility] Renal MD Member Role: Lifetime Consulting Physician Address: Address: [address] [place] [address] [address] [facility] [place] [address]- Name: Jagdeep Delcid RN Position: [facility] RN Member Role: Primary Care Nurse Name: Jen Kirk RN Position: [facility] RN Member Role: Primary Care Nurse Name: Denisa Garcia RN Position: [facility] RN Member Role: Primary Care Nurse Name: Janiya Mathews Position: [facility] Associate Professional Member Role: Lifetime Consulting Provider Address: Address: [address] [place] [address] [facility] [place] [address]- Name: Galo Jiang MD Position: [facility] Renal MD Member Role: Lifetime Consulting Physician Address: Address: [address] [place] [address] [facility] [place] [address]- Name: Saranya Kaufman RN Position: [facility] OB RN Member Role: Primary Care Nurse Name: Aliya Reeves RN Position: [facility] AMB Nurse Member Role: Primary Care Nurse Name: Trista Pablo RN Position: [facility] RN Member Role: Primary Care Nurse Name: Debbi Hernández RN Position: [facility] RN Member Role: Primary Care Nurse Name: Kristal Alvarez MD Position: [facility] Physician - Primary Care Member Role: PCP Address: Address: [address] [place] [id number] Name: Alyce Esteban RN, I Position: S RN Member Role: Primary Care Nurse Name: Aspen Leon Position: S RN Member Role: Primary Care Nurse Care Team Related Persons Name: JUAN MANUEL PETTYRula Address: home [address] [place] [address] Name: DEEPIKA BENJAMIN Address: [address] [place] [address] Name: DEEPIKA BENJAMIN Address: [address] [place] [address] Name: ERROL CONWAY
--- OUTSIDE RECORDS SUMMARY | 2024-04-04 11:27 | XMS_ITS | Continuity of Care Document ---
Author Organization [facility] Address [address] [place] [address]- Care Team Providers Care Child Care Aide Name Role Phone Kristal Alvarez MD Primary Care Physician Encounter [facility] Date(s): 01/25/24 - 02/24/[address] [address] Allergies, Adverse Reactions, Alerts Substance Reaction Severity [...] 17:30:00 EDT, Aerosol, Route to Pharmacy Electronically, [id number], [facility], 170, cm, 11/25/22 10:38:0... Start Date: 12/25/22 [...] tablet, 3 Refills, Maintenance, 01/26/24 9:50:00 EDT, [facility], 164, cm, 01/20/24 13:25:00 EDT, Height, 140, kg, 01/15/24 6:54:00 EDT, Dry Weight Start Date: 01/26/24 Stop Date: 01/20/25 Status: Ordered apixaban 5 mg oral tablet 1 tablet = 5 mg, By Mouth, 2 times a day, # 60 tablet, 11 Refills, Maintenance, 07/21/23 16:42:00 EST, Tablet, [facility], Partial fill upon patient request if the prescription is fora schedule II opioid drug., 170, cm, 07/09/23 15:11... Start Date: 07/21/23 Stop Date: 07/15/24 Status: Ordered atorvastatin 20 mg oral tablet 1 tablet, By Mouth, Daily, # 90 tablet, 3 Refills, Maintenance, 05/27/23 9:56:00 EDT, [facility], 170, cm, 05/24/23 15:53:00 EDT, Height, 150, kg, 04/26/23 17:25:00 EDT, Dry Weight Start Date: 05/27/23 Stop Date: 05/21/24 Status: Ordered bisacodyl 10 mg rectal suppository 1 supp = 10 mg, Rectally, Daily, PRN for constipation, # 20 supp, 3 Refills, Maintenance, 09/03/23 16:21:00 EST, Suppository, [facility] #[id number], Partial fill upon patient request if the prescription is for a schedule II opioid drug., 170, cm... Start Date: 09/03/23 Status: Ordered calcium acetate 667 mg oral tablet 3 tablet = 2,001 mg, By Mouth, 3 times a day, # 270 tablet, 0 Refills, Maintenance, 09/23/23 15:50:00 EST, Tablet, [facility] #[id number], Partial fill upon patient request if the prescription is for a schedule II opioid drug., 170, cm, 09/03/23... Start Date: 09/23/23 Stop Date: 10/23/23 Status: Ordered carvedilol 25 mg oral tablet 1, tablet, By Mouth, 2 times a day, # 180 tablet, Refills 3, Tot. Refills 3, Maintenance, 09/23/23 15:50:00 EST, Route to Pharmacy Electronically, [facility] #[id number], 170, cm, 09/03/23 16:31:00 EST, Height, 141.6, [...] Replace Required Details, Route to Pharmacy Electronically, [facility], 170, cm, 07/09/23 15:11:... Start Date: 07/21/23 [...] mL, 11 Refills, Maintenance, 03/25/23 9:48:00EDT, Solution, [facility]., decrease in dose, 170, cm, [...] mL, 11 Refills, Maintenance, 03/25/23 9:47:00 EDT, [facility].... Start Date: 03/25/23 Status: Ordered Insulin Syringe, [...] tablet, 3 Refills, Maintenance, 01/26/24 15:08:00 EDT, [facility] #[id number], 164, cm, 01/20/24 13:25:00 EDT, Height, 140, kg, 01/15/24 6:54:00 EDT, Dry Weight Start Date: 01/26/24 Status: Ordered MiraLax oral powder for reconstitution = 17 Gm, By Mouth, Daily, PRN Constipation, dissolve in water before taking, # 255 Gm, 0 Refills, Maintenance, 03/04/23 17:25:00 EDT, REC Powder, [facility] #[id number], Partial fill upon patient request if the [...] days, # 60 tablet, 0 Refills, Acute 02/25/24 15:07:00 EDT, 01/26/24 15:07:00 EDT, Tablet, [facility] #[id number], Partial fill upon patient request if the prescription is for a schedule II opioid... Start Date: 01/26/24 Stop Date: 02/25/24 Status: Ordered pantiliners pantiliners, See Instructions, # 120 each, Refills 11, Tot. Refills 11, Maintenance, dx: urinary incontinence, diabetic neuropathy ICD10: R32 duration: 99 needs 2 per night, 01/29/23 15:05:00 EDT, Supply Start Date: 01/29/23 Status: Ordered Pen [place], 32 G x 4 mm BD Ultra [...] incontinence, T2DM ICD10: R32, E11.4 duration: , 01/03/24 8:49:00 EDT, Supply Start Date: 01/03/24 Status: Ordered Protective Ointment with Vitamins A&D topical ointment See Instructions, Topically 4 times a day to affected areas, # 120 Gm, 11 Refills, Maintenance, 09/03/23 16:21:00 EST, [facility] #[id number], Partial fill upon patient request if the prescription is for a schedule II opioid drug., Topically 4 ti... Start Date: 09/03/23 Status: Ordered pulse oximeter pulse oximeter, See Instructions, # 1 each, Refills 0, Tot. Refills 0, Maintenance, to monitor pulse dx: ESRD on dialysis ICD10: N18. 6, 03/08/23 16:59:00 EDT, Supply Start Date: 03/08/23 Status: Ordered sevelamer carbonate 800 mg oral tablet = 2,400 mg, By Mouth, 3 times a day with meals, # 90 tablet, 0 Refills, Maintenance, 05/10/23 15:47:00 EDT, Tablet, [facility], Partial fill upon patient request if the prescription is for a schedule II opioid drug., 170, cm, 05/10/23 12... Start Date: 05/10/23 Status: Ordered shower grab bars shower grab [...] 3 Refills, Maintenance, 01/26/24 9:49:00 EDT, Tablet, [facility], Partial fill upon patient request if the prescription is for aschedule II opioid drug., 164, cm, 01/20/24 13:25:0... Start Date: 01/26/24 Stop Date: 05/25/24 Status: Ordered traZODone 100 mg oral tablet 200 mg, 2, tablet, By Mouth, Daily at bedtime, # 60 tablet, Refills 11, Tot. Refills 11, Maintenance, 02/08/24 12:28:00 EDT, Route to Pharmacy Electronically, [facility] #[id number], Partial fill upon patient request if the prescription is for a... Start Date: 02/08/24 Stop Date: 02/02/25 Status: Ordered traZODone 100 mg oral tablet 150 mg, 1.5, tablet, By Mouth, Daily at bedtime, # 45 tablet, Refills 5, Tot. Refills 5, Maintenance, 09/03/23 16:25:00 EST, Route to Pharmacy Electronically, [facility] #[id number], 170, cm, 09/03/23 16:31:00 EST, Height, 141.6, [...] tablet, 3 Refills, Maintenance, 12/30/23 12:08:00 EDT, [facility] 170, cm, 12/07/23 14:18:00 EDT, [...] dependence syndrome Confirmed Active [facility] tel [phone] fax [phone] Social History Social History Type Response Smoking Status 10 or more cigarette s (1/2 pack or more)/day in last 30 days entered on: 11/11/21 Sex Patient Care team information Care Team Personnel Name: Rebeca Pete RN Position: [facility] RN Member Role: Primary Care Nurse Name: Rebeca Khan RN Position: [facility] SN RN Member Role: Primary Care Nurse Name: Adams Joy MD Position: [facility] Renal MD Member Role: Lifetime Consulting Physician Address: Address: [address] [place] [address] [address] [facility] [address]- Name: Korin Solares RN Position: [facility] RN Member Role: Primary Care Nurse Name: Flor Collado RN Position: [facility] Onco RN Member Role: Primary Care Nurse Name: Aliya Latham RN Position: [facility] Rad RN Member Role: Primary Care Nurse Name: Callie Reagan RN Position: [facility] RN Member Role: Primary Care Nurse Name: Korin Lopez RN Position: [facility] RN Member Role: Primary Care Nurse Name: Kim Means Position: [facility] Associate Professional Member Role: Lifetime Consulting Provider Address: Address: [address] [place] [address] [address] [facility] [place] [address]- [place] Name: Netta Brown RN Position: [facility] MR W/ Irwin Member Role: Primary Care Nurse Name: Marichuy Broussard RN Position: [facility] RN Member Role: Primary Care Nurse Name: Irineo Gale RN Position: [facility] RN Member Role: Primary Care Nurse Name: Radha Gayle RN Position: [facility] AMB Nurse Member Role: Primary Care Nurse Name: Kendall Jasso RN Position: [facility] RN Member Role: Primary Care Nurse Name: Yecenia Quiles RN Position: [facility] RN Member Role: Primary Care Nurse Name: Joanna Boston RN Position: [facility] RN Member Role: Lifetime Consulting Physician Name: Aliya Nuñez NP Position: [facility] PCO Associate Professional Member Role: Primary Care Nurse Address: Address: [address] [place] [address]- [place] Name: Khloe Walsh RN Position: [facility] RN Member Role: Primary Care Nurse Name: Mila Jiang RN Position: [facility] RN Member Role: Primary Care Nurse Name: Darshana Estrada RN Position: [facility] RN Member Role: Primary Care Nurse Name: Hank Velasquez III, RN Position: [facility] RN Member Role: Primary Care Nurse Name: Matias Rivera Position: [facility] Associate Professional Member Role: Lifetime Consulting Provider Address: Address: [address] [place] [address]- Name: Leonid Kitchen Jr, RN Position: [facility] ED RN W/OE and Tasks Member Role: Primary Care Nurse Name: Mayur Cadena RN Position: [facility] RN Member Role: Primary Care Nurse Name: Rebeca Jaquez NP Position: [facility] Associate Professional Member Role: Primary Care Nurse Address: Address: [address] [facility] [place] [address]- [place] Name: Dalton Bills MD Position: [facility] Renal MD Member Role: Lifetime Consulting Physician Address: Address: [address] [place] [address] [address] [facility] [place] [address]- Name: Jagdeep Delcid RN Position: [facility] RN Member Role: Primary Care Nurse Name: Jen Kirk RN Position: [facility] RN Member Role: Primary Care Nurse Name: Denisa Garcia RN Position: [facility] RN Member Role: Primary Care Nurse Name: Janiya Mathews Position: [facility] Associate Professional Member Role: Lifetime Consulting Provider Address: Address: [address] [place] [address] [facility] [place] [address]- [place] Name: Galo Jiang MD Position: [facility] Renal MD Member Role: Lifetime Consulting Physician Address: Address: [address] [place] [address] [facility] [place] [address]- [place] Name: Saranya Kaufman RN Position: [facility] OB RN Member Role: Primary Care Nurse Name: Aliya Reeves RN Position: [facility] AMB Nurse Member Role: Primary Care Nurse Name: Trista Pablo RN Position: [facility] RN Member Role: Primary Care Nurse Name: Debbi Hernández RN Position: [facility] RN Member Role: Primary Care Nurse Name: Kristal Alvarez MD Position: [facility] Physician - Primary Care Member Role: PCP Address: Address: [address] [place] [address] Name: Alyce Esteban RN, I Position: [facility] RN Member Role: Primary Care Nurse Name: Aspen Leon Position: [facility] RN Member Role: Primary Care Nurse Care Team Related Persons Name: CASSIDY BILLYLOLISANNIEBREONNARula Address: home [address] [place] [address] Name: CASSIDY DEEPIKA Address: [address] [place] [address] Name: CASSIDY DEEPIKA Address: [address] [place] [address] Name: ERROL CONWAY
--- OUTSIDE RECORDS SUMMARY | 2024-04-04 11:27 | XMS_ITS | Continuity of Care Document ---
Author Organization [facility] Address [address] [address]- Care Team Providers Care Logistics Management Specialist Name Role Phone Kristal Alvarez MD Primary Care Physician [phone] Encounter [facility] Date(s): 12/30/23 - 01/29/24 [facility] [address] [address] Allergies, Adverse Reactions, Alerts Substance Reaction [...] 17:30:00 EDT, Aerosol, Route to Pharmacy Electronically, [id number], [facility], 170, cm, 11/25/22 10:38:0... Start Date: [...] tablet, 3 Refills, Maintenance, 01/26/24 9:50:00 EDT, [facility], 164, cm, 01/20/24 13:25:00 EDT, Height, 140, kg, 01/15/24 6:54:00 EDT, Dry Weight Start Date: 01/26/24 Stop Date: 01/20/25 Status: Ordered apixaban 5 mg oral tablet 1 tablet = 5 mg, By Mouth, 2 times a day, # 60 tablet, 11 Refills, Maintenance, 07/21/23 16:42:00 EST, Tablet, [facility], Partial fill upon patient request if the prescription is fora schedule II opioid drug., 170, cm, 07/09/23 15:11... Start Date: 07/21/23 Stop Date: 07/15/24 Status: Ordered atorvastatin 20 mg oral tablet 1 tablet, By Mouth, Daily, # 90 tablet, 3 Refills, Maintenance, 05/27/23 9:56:00 EDT, [facility] 170, cm, 05/24/23 15:53:00 EDT, Height, 150, kg, 04/26/23 17:25:00 EDT, Dry Weight Start Date: 05/27/23 Stop Date: 05/21/24 Status: Ordered bisacodyl 10 mg rectal suppository 1 supp = 10 mg, Rectally, Daily, PRN for constipation, # 20 supp, 3 Refills, Maintenance, 09/03/23 16:21:00 EST, Suppository, [facility] #[id number], Partial fill upon patient request if the prescription is for a schedule II opioid drug., 170, cm... Start Date: 09/03/23 Status: Ordered calcium acetate 667 mg oral tablet 3 tablet = 2,001 mg, By Mouth, 3 times a day, # 270 tablet, 0 Refills, Maintenance, 09/23/23 15:50:00 EST, Tablet, [facility] #[id number], Partial fill upon patient request if the prescription is for a schedule II opioid drug., 170, cm, 09/03/23... Start Date: 09/23/23 Stop Date: 10/23/23 Status: Ordered carvedilol 25 mg oral tablet 1, tablet, By Mouth, 2 times a day, # 180 tablet, Refills 3, Tot. Refills 3, Maintenance, 09/23/23 15:50:00 EST, Route to Pharmacy Electronically, [facility] #[id number], 170, cm, 09/03/23 16:31:00 EST, Height, 141.6, [...] Replace Required Details, Route to Pharmacy Electronically, [facility], 170, cm, 07/09/23 15:11:... Start Date: 07/21/23 [...] mL, 11 Refills, Maintenance, 03/25/23 9:48:00EDT, Solution, [facility] decrease in dose, 170, cm, 01/29/23 13:41:00 [...] mL, 11 Refills, Maintenance, 03/25/23 9:47:00 EDT, [facility] Start Date: 03/25/23 Status: Ordered [...] tablet, 3 Refills, Maintenance, 01/26/24 15:08:00 EDT, [facility] #[id number], 164, cm, 01/20/24 13:25:00 EDT, Height, 140, kg, 01/15/24 6:54:00 EDT, Dry Weight Start Date: 01/26/24 Status: Ordered MiraLax oral powder for reconstitution = 17 Gm, By Mouth, Daily, PRN Constipation, dissolve in water before taking, # 255 Gm, 0 Refills, Maintenance, 03/04/23 17:25:00 EDT, REC Powder, [facility] #[id number], Partial fill upon patient request if the [...] 02/25/24 15:07:00 EDT, 01/26/24 15:07:00 EDT, Tablet, [facility] #[id number], Partial fill upon patient request if the prescription is for a schedule II opioid... Start Date: 01/26/24 Stop Date: 02/25/24 Status: Ordered pantiliners pantiliners, See Instructions, # 120 each, Refills 11, Tot. Refills 11, Maintenance, dx: urinary incontinence, diabetic neuropathy ICD10: R32 duration: 99 needs 2 per night, 01/29/23 15:05:00 EDT, Supply Start Date: 01/29/23 Status: Ordered Pen Almond, 32 G x 4 mm BD Ultra [...] Gm, 11 Refills, Maintenance, 09/03/23 16:21:00 EST, [facility] #[id number], Partial fill upon patient request if the [...] 0 Refills, Maintenance, 05/10/23 15:47:00 EDT, Tablet, [facility], Partial fill upon patient request [...] 3 Refills, Maintenance, 01/26/24 9:49:00 EDT, Tablet, [facility], Partial fill upon patient request if the prescription is for aschedule II opioid drug., 164, cm, 01/20/24 13:25:0... Start Date: 01/26/24 Stop Date: 05/25/24 Status: Ordered traZODone 100 mg oral tablet 150 mg, 1.5, tablet, By Mouth, Daily at bedtime, # 45 tablet, Refills 5, Tot. Refills 5, Maintenance, 09/03/23 16:25:00 EST, [id number], 170, cm, 09/03/23 16:31:00 EST, Height, 141.6, [...] tablet, 3 Refills, Maintenance, 12/30/23 12:08:00 EDT, [facility] 170, cm, 12/07/23 14:18:00 EDT, Height, 141.6, [...] foot Confirmed Active Controlled substance agreement signed 01/29/23 Confirmed Active GERD (gastroesophageal reflux disease) Confirmed Active Spinal hemangioma Confirmed Active Status post transmetatarsal amputation of right foot Confirmed Active Hyperlipidemia Confirmed Active Hypertension Confirmed Active Diabetic foot infection Confirmed Active Nail ingrowing Confirmed Active Morbid obesity Confirmed Active Severe obesity Confirmed Active Tobacco dependence syndrome Confirmed Active [facility] tel [phone] fax [phone] Social History Social History Type Response Smoking [...] Role: Lifetime Consulting Physician Address: Address: [address] [place] [address] [address] [place] [address]- [place] Name: Korin Solares RN Position: [facility] RN [...] Role: Lifetime Consulting Provider Address: Address: [address] [facility] [address] [place] [address]- [place] Name: Netta Brown RN Position: [place] [...] Consulting Physician Name: Aliya Nuñez NP [facility] Associate Professional Member Role: Primary Care Nurse Address: Address: [address] [place] [address]- [place] Name: Khloe Walsh RN Position: [facility] RN Member Role: Primary Care Nurse Name: Mila Jiang RN Position: [facility] RN Member Role: Primary Care Nurse Name: Darshana Estrada RN Position: [facility] RN Member Role: Primary Care Nurse Name: Yaritza Velasquez III, RN Position: [facility] RN Member Role: Primary Care Nurse Name: Matias Rivera Position: [facility] Associate Professional Member Role: Lifetime Consulting Provider Address: Address: [address] [place] [address]- Name: Fidelina Phillips RNLeonid Position: [facility] ED RN W/OE and Tasks Member Role: Primary Care Nurse Name: Mayur Cadena RN Position: [facility] RN Member Role: Primary Care Nurse Name: Rebeca Jaquez NP Position: [facility] PCO Associate Professional Member Role: Primary Care Nurse Address: Address: [address] [place] [address]- Name: Dalton Bills MD Position: [facility] Renal MD Member Role: Lifetime Consulting Physician Address: Address: [address] [place] [address] [address] [facility] [place] [address]- Name: Jagdeep Delcid RN Position: [facility] RN Member Role: Primary Care Nurse Name: Jen Kirk RN Position: [facility] RN Member Role: Primary Care Nurse Name: Denisa Garcia RN Position: [facility] RN Member Role: Primary Care Nurse Name: Janiya Mathews Position: [facility] Associate Professional Member Role: Lifetime Consulting Provider Address: Address: [address] [place] [address] [facility] [place] [address]- Name: Galo Jiang MD Position: [facility] Renal MD Member Role: Lifetime Consulting Physician Address: Address: [address] [place] [address] [facility] [place] [address]- [place] Name: Saranya Kaufman RN Position: [place] [...] Primary Care Member Role: PCP Address: Address: [address] [place] [address]- Name: Alyce Esteban RN, I Position: S RN Member Role: Primary Care Nurse Name: Aspen Leon Position: S RN Member Role: Primary Care Nurse Care Team Related Persons Name: CANDIDA PETTY Address: [address] [place] [address] Name: CASSIDY DEEPIKA Address: [address] [place] [address] Name: DEEPIKA BENJAMIN Address: [address] [place] [address] Name: ERROL CONWAY
--- OUTSIDE RECORDS SUMMARY | 2024-04-04 11:28 | XMS_ITS | Continuity of Care Document ---
Author Organization [facility] Address [address] [place] [address]- Care Team Providers Care Senior Quality Engineer Name Role Phone Kristal Alvarez MD Primary Care Physician Encounter [facility] [id number] Date(s): 12/27/23 - 01/26/[address] [address] Allergies, Adverse Reactions, Alerts Substance Reaction [...] 17:30:00 EDT, Aerosol, Route to Pharmacy Electronically, [id number], [facility], 170, cm, 11/25/22 10:38:0... Start Date: [...] tablet, 3 Refills, Maintenance, 01/26/24 9:50:00 EDT, [facility], 164, cm, 01/20/24 13:25:00 EDT, Height, 140, kg, 01/15/24 6:54:00 EDT, Dry Weight Start Date: 01/26/24 Stop Date: 01/20/25 Status: Ordered apixaban 5 mg oral tablet 1 tablet = 5 mg, By Mouth, 2 times a day, # 60 tablet, 11 Refills, Maintenance, 07/21/23 16:42:00 EST, Tablet, [facility], Partial fill upon patient request if the prescription is fora schedule II opioid drug., 170, cm, 07/09/23 15:11... Start Date: 07/21/23 Stop Date: 07/15/24 Status: Ordered atorvastatin 20 mg oral tablet 1 tablet, By Mouth, Daily, # 90 tablet, 3 Refills, Maintenance, 05/27/23 9:56:00 EDT, [facility], 170, cm, 05/24/23 15:53:00 EDT, Height, 150, kg, 04/26/23 17:25:00 EDT, Dry Weight Start Date: 05/27/23 Stop Date: 05/21/24 Status: Ordered bisacodyl 10 mg rectal suppository 1 supp = 10 mg, Rectally, Daily, PRN for constipation, # 20 supp, 3 Refills, Maintenance, 09/03/23 16:21:00 EST, Suppository, Mobile Location, [id number], Partial fill upon patient request if the prescription is for a schedule II opioid drug., 170, cm... Start Date: 09/03/23 Status: Ordered calcium acetate 667 mg oral tablet 3 tablet = 2,001 mg, By Mouth, 3 times a day, # 270 tablet, 0 Refills, Maintenance, 09/23/23 15:50:00 EST, Tablet, Mobile Location, [facility][id number], Partial fill upon patient request if the prescription is for a schedule II opioid drug., 170, cm, 09/03/23... Start Date: 09/23/23 Stop Date: 10/23/23 Status: Ordered carvedilol 25 mg oral tablet 1, tablet, By Mouth, 2 times a day, # 180 tablet, Refills 3, Tot. Refills 3, Maintenance, 09/23/23 15:50:00 EST, Route to Pharmacy Electronically, Mobile Location, [facility][id number], 170, cm, 09/03/23 16:31:00 EST, Height, 141.6, [...] Replace Required Details, Route to Pharmacy Electronically, [facility], 170, cm, 07/09/23 15:11:... Start Date: [...] mL, 11 Refills, Maintenance, 03/25/23 9:48:00EDT, Solution, [facility]., decrease in dose, 170, cm, 01/29/23 [...] mL, 11 Refills, Maintenance, 03/25/23 9:47:00 EDT, [facility].... Start Date: 03/25/23 Status: Ordered Insulin [...] tablet, 3 Refills, Maintenance, 01/26/24 15:08:00 EDT, [facility] #[id number], 164, cm, 01/20/24 13:25:00 EDT, Height, 140, kg, 01/15/24 6:54:00 EDT, Dry Weight Start Date: 01/26/24 Status: Ordered MiraLax oral powder for reconstitution = 17 Gm, By Mouth, Daily, PRN Constipation, dissolve in water before taking, # 255 Gm, 0 Refills, Maintenance, 03/04/23 17:25:00 EDT, REC Powder, [facility] #[id number], Partial fill upon patient request if the [...] 02/25/24 15:07:00 EDT, 01/26/24 15:07:00 EDT, Tablet, [facility] #[id number], Partial fill upon patient request if the prescription is for a schedule II opioid... Start Date: 01/26/24 Stop Date: 02/25/24 Status: Ordered pantiliners pantiliners, See Instructions, # 120 each, Refills 11, Tot. Refills 11, Maintenance, dx: urinary incontinence, diabetic neuropathy ICD10: R32 duration: 99 needs 2 per night, 01/29/23 15:05:00 EDT, Supply Start Date: 01/29/23 Status: Ordered Pen [place], 32 G x 4 mm BD Ultra [...] Gm, 11 Refills, Maintenance, 09/03/23 16:21:00 EST, Mobile Location, [id number], Partial fill upon patient request if the [...] 0 Refills, Maintenance, 05/10/23 15:47:00 EDT, Tablet, [facility], Partial fill upon patient request [...] 3 Refills, Maintenance, 01/26/24 9:49:00 EDT, Tablet, [facility], Partial fill upon patient request if the prescription is for aschedule II opioid drug., 164, cm, 01/20/24 13:25:0... Start Date: 01/26/24 Stop Date: 05/25/24 Status: Ordered traZODone 100 mg oral tablet 150 mg, 1.5, tablet, By Mouth, Daily at bedtime, # 45 tablet, Refills 5, Tot. Refills 5, Maintenance, 09/03/23 16:25:00 EST, Route to Pharmacy Electronically, [facility] #[id number], 170, cm, 09/03/23 16:31:00 EST, Height, 141.6, [...] 3 Refills, Maintenance, 12/30/23 12:08:00 EDT, [facility] 170, cm, 12/07/23 14:18:00 EDT, Height, 141.6, [...] dependence syndrome Confirmed Active [facility] tel [phone] fax [phone] Social History Social History Type Response Smoking [...] Member Role: Lifetime Consulting Physician Address: Address: [address] [place] [address] [address] [place] [address]- [place] Name: Korin Solares RN Position: [facility] RN Member Role: Primary Care Nurse Name: Flor Collado RN Position: [facility] Onco RN Member Role: Primary Care Nurse Name: Ailya Latham RN Position: [facility] Rad RN Member Role: Primary Care Nurse Name: Callie Reagan RN Position: [facility] RN Member Role: Primary Care Nurse Name: Korin Lopez RN Position: [facility] RN Member Role: Primary Care Nurse Name: Kim Means Position: [facility] Associate Professional Member Role: Lifetime Consulting Provider Address: Address: [address] [facility] [address] [facility] [place] [address]- [place] Name: Netta Brown RN Position: [facility] [...] Member Role: Primary Care Nurse Address: Address: [address] [place] [address]- [place] Name: Khloe Walsh RN Position: [facility] [...] Member Role: Lifetime Consulting Provider Address: Address: [address] [place] [address]- [place] Name: Leonid Kitchen Jr, RN Position: [facility] ED RN W/OE and Tasks Member Role: Primary Care Nurse Name: Mayur Cadena RN Position: [facility] RN Member Role: Primary Care Nurse Name: Rebeca Jaquez NP Position: [facility] PCO Associate Professional Member Role: Primary Care Nurse Address: Address: [address] [place] [address]- [place] Name: Dalton Bills MD Position: [facility] Renal MD Member Role: Lifetime Consulting Physician Address: Address: [address] [place] [address] [address] [facility] [place] [address]- [place] Name: Jagdeep Delcid RN Position: [facility] RN Member Role: Primary Care Nurse Name: Jen Kirk RN Position: [facility] RN Member Role: Primary Care Nurse Name: Denisa Garcia RN Position: [facility] RN Member Role: Primary Care Nurse Name: Janiya Mathews Position: [facility] Associate Professional Member Role: Lifetime Consulting Provider Address: Address: [address] [place] [address] [facility] [place] [address]- [place] Name: Galo Jiang MD Position: [facility] Renal MD Member Role: Lifetime Consulting Physician Address: Address: [address] [place] [address] [facility] [place] [address]- [place] Name: Saranya Kaufman RN [facility] Care Member Role: PCP Address: Address: [address] [place] [address]- [place] Name: Alyce Esteban RN, I Position: S RN Member Role: Primary Care Nurse Name: Aspen Leon Position: S RN Member Role: Primary Care Nurse Care Team Related Persons Name: CANDIDA PETTY Address: home [address] [place] [address] Name: DEEPIKA BENJAMIN Address: [address] [place] [address] Name: DEEPIKA BENJAMIN Address: home [address] [place] [address] Name: ERROL CONWAY
--- OUTSIDE RECORDS SUMMARY | 2024-04-04 11:30 | XMS_ITS | Continuity of Care Document ---
Author Organization [facility] Address [address] [place] [address]- Care Team Providers Care System Administration Advisor Name Role Phone Kristal Alvarez MD Primary Care Physician [phone] Encounter [facility] Date(s): 02/28/24 - 03/29/[address] [address] Allergies, Adverse Reactions, Alerts Substance Reaction [...] 17:30:00 EDT, Aerosol, Route to Pharmacy Electronically, [id number], [facility], 170, cm, 11/25/22 10:38:0... Start Date: [...] tablet, 3 Refills, Maintenance, 01/26/24 9:50:00 EDT, [facility], 164, cm, 01/20/24 13:25:00 EDT, Height, 140, kg, 01/15/24 6:54:00 EDT, Dry Weight Start Date: 01/26/24 Stop Date: 01/20/25 Status: Ordered apixaban 5 mg oral tablet 1 tablet = 5 mg, By Mouth, 2 times a day, # 60 tablet, 11 Refills, Maintenance, 07/21/23 16:42:00 EST, Tablet, [facility], Partial fill upon patient request if the prescription is fora schedule II opioid drug., 170, cm, 07/09/23 15:11... Start Date: 07/21/23 Stop Date: 07/15/24 Status: Ordered atorvastatin 20 mg oral tablet 1 tablet, By Mouth, Daily, # 90 tablet, 3 Refills, Maintenance, 05/27/23 9:56:00 EDT, [facility], 170, cm, 05/24/23 15:53:00 EDT, Height, 150, kg, 04/26/23 17:25:00 EDT, Dry Weight Start Date: 05/27/23 Stop Date: 05/21/24 Status: Ordered bisacodyl 10 mg rectal suppository 1 supp = 10 mg, Rectally, Daily, PRN for constipation, # 20 supp, 3 Refills, Maintenance, 09/03/23 16:21:00 EST, Suppository, [facility] #[id number], Partial fill upon patient request if the prescription is for a schedule II opioid drug., 170, cm... Start Date: 09/03/23 Status: Ordered calcium acetate 667 mg oral tablet 3 tablet = 2,001 mg, By Mouth, 3 times a day, # 270 tablet, 0 Refills, Maintenance, 09/23/23 15:50:00 EST, Tablet, [facility] #[id number], Partial fill upon patient request if the prescription is for a schedule II opioid drug., 170, cm, 09/03/23... Start Date: 09/23/23 Stop Date: 10/23/23 Status: Ordered carvedilol 25 mg oral tablet 1, tablet, By Mouth, 2 times a day, # 180 tablet, Refills 3, Tot. Refills 3, Maintenance, 09/23/23 15:50:00 EST, Route to Pharmacy Electronically, [facility] #[id number], 170, cm, 09/03/23 16:31:00 EST, Height, 141.6, [...] 04/21/24 13:29:00 EDT, 03/24/24 13:29:00 EDT, Tablet, [facility] #[id number], Partial fill upon patient request if the [...] Replace Required Details, Route to Pharmacy Electronically, [facility], 164, cm, 02/08/24 11:45:... Start Date: [...] mL, 11 Refills, Maintenance, 03/25/23 9:48:00EDT, Solution, [facility]., decrease in dose, 170, cm, 01/29/23 [...] mL, 11 Refills, Maintenance, 03/22/24 12:14:00 EDT, [facility].. Start Date: 03/22/24 Status: Ordered Insulin [...] tablet, 3 Refills, Maintenance, 01/26/24 15:08:00 EDT, [facility] #[id number], 164, cm, 01/20/24 13:25:00 EDT, Height, 140, kg, 01/15/24 6:54:00 EDT, Dry Weight Start Date: 01/26/24 Status: Ordered MiraLax oral powder for reconstitution = 17 Gm, By Mouth, Daily, PRN Constipation, dissolve in water before taking, # 255 Gm, 0 Refills, Maintenance, 03/04/23 17:25:00 EDT, REC Powder, [facility] #[id number], Partial fill upon patient request if the [...] 04/28/24 12:08:00 EDT, 03/29/24 12:08:00 EDT, Tablet, [facility] #[id number], Partial fill upon patient request if the prescription is for a schedule II opioid... Start Date: 03/29/24 Stop Date: 04/28/24 Status: Ordered pantiliners pantiliners, See Instructions, # 120 each, Refills 11, Tot. Refills 11, Maintenance, dx: urinary incontinence, diabetic neuropathy ICD10: R32 duration: 99 needs 2 per night, 01/29/23 15:05:00 EDT, Supply Start Date: 01/29/23 Status: Ordered Pen [place], 32 G x 4 mm BD Ultra [...] Gm, 11 Refills, Maintenance, 09/03/23 16:21:00 EST, [facility] #[id number], Partial fill upon patient request if the [...] tablet, 3 Refills, Maintenance, 02/25/24 16:28:00 EDT, [facility], 164, cm, 02/08/24 11:45:00 EDT, Height, [...] 3 Refills, Maintenance, 01/26/24 9:49:00 EDT, Tablet, [facility], Partial fill upon patient request if the prescription is for aschedule II opioid drug., 164, cm, 01/20/24 13:25:0... Start Date: 01/26/24 Stop Date: 05/25/24 Status: Ordered traZODone 100 mg oral tablet 200 mg, 2, tablet, By Mouth, Daily at bedtime, # 60 tablet, Refills 1, Tot. Refills 1, Maintenance,03/22/24 12:14:00 EDT, Route to Pharmacy Electronically, [facility], Partial fill upon patient request if the prescription is for a matthieu... Start Date: 03/22/24 Stop Date: 05/21/24 Status: Ordered traZODone 100 mg oral tablet 150 mg, 1.5, tablet, By Mouth, Daily at bedtime, # 45 tablet, Refills 5, Tot. Refills 5, Maintenance, 09/03/23 16:25:00 EST, Route to Pharmacy Electronically, [facility] #[id number], 170, cm, 09/03/23 16:31:00 EST, Height, 141.6, kg, 08/04/23 23:... Start Date: 09/03/23 Status: Ordered Trulicity Pen 0.75 mg/0.5 mL subcutaneous solution 0.5 mL = 0.75 mg, Subcutaneous Injection, Every week, for weight loss, # 2 mL, 3 Refills, Maintenance, 03/15/24 16:35:00 EDT, Solution, [facility], Partial fill upon patient request if [...] tablet, 3 Refills, Maintenance, 12/30/23 12:08:00 EDT, [facility] 170, cm, 12/07/23 14:18:00 [...] dependence syndrome Confirmed Active [facility] tel [phone] fax [phone] Social History Social History Type Response Smoking Status 10 or more cigarette s (1/2 pack or more)/day in last 30 days entered on: 11/11/21 Sex Patient Care team information Care Team Personnel Name: Rebeca Pete RN Position: [facility] RN Member Role: Primary Care Nurse Name: Rebeca Khan RN Position: [facility] SN RN Member Role: Primary Care Nurse Name: Adams Joy MD Position: [facility] Renal MD Member Role: Lifetime Consulting Physician Address: Address: [address] [place] [address] [address] [place] [address]- Name: Korin Solares RN Position: S RN Member Role: Primary Care Nurse Name: Flor Collado RN Position: [facility] Onco RN Member Role: Primary Care Nurse Name: Aliya Latham RN Position: [facility] Rad RN Member Role: Primary Care Nurse Name: Callie Reagan RN Position: [facility] RN Member Role: Primary Care Nurse Name: Korin Lopez RN Position: [facility] RN Member Role: Primary Care Nurse Name: Kmi Means Position: [facility] Associate Professional Member Role: Lifetime Consulting Provider Address: Address: [address] [place] [address] [address] [facility] [place] [place] [address]- [place] Name: Netta Brown RN Position: [facility] MR W/ Merge Member Role: Primary Care Nurse Name: Marichuy Broussard RN Position: [facility] RN Member Role: Primary Care Nurse Name: Irineo Gale RN Position: [facility] RN Member Role: Primary Care Nurse Name: Radha Gayle RN Position: [facility] AMB Nurse Member Role: Primary Care Nurse Name: Kendall Jasso RN Position: [facility] RN Member Role: Primary Care Nurse Name: Yecenia Quiles RN Position: [facility] RN Member Role: Primary Care Nurse Name: Joanan Boston RN Position: [facility] RN Member Role: Lifetime Consulting Physician Name: Aliya Nñuez NP Position: [facility] PCO Associate Professional Member Role: Primary Care Nurse Address: Address: [address] [place] [address]- [place] Name: Khloe Walsh RN Position: [facility] RN Member Role: Primary Care Nurse Name: Mila Jiang RN Position: [facility] RN Member Role: Primary Care Nurse Name: Darshana Estrada RN Position: [facility] RN Member Role: Primary Care Nurse Name: Hank Velasquez III, RN Position: [facility] RN Member Role: Primary Care Nurse Name: Matias Rivera Position: [facility] Associate Professional Member Role: Lifetime Consulting Provider Address: Address: [address] [place] [address]- [place] Name: Leonid Kitchen Jr, RN Position: [facility] AMBERLY RN W/OE and Tasks Member Role: Primary Care Nurse Name: Mayur Cadena RN Position: [facility] RN Member Role: Primary Care Nurse Name: Rebeca Jaquez NP Position: [facility] PCO Associate Professional Member Role: Primary Care Nurse Address: Address: [address] [place] [address] [place] [address]- [place] Name: Dalton Bills MD Position: [facility] Renal MD Member Role: Lifetime Consulting Physician Address: Address: [address] [facility] [place] [address]- Name: Jagdeep Delcid RN Position: S RN Member Role: Primary Care Nurse Name: Jen Kirk RN Position: [facility] RN Member Role: Primary Care Nurse Name: Denisa Garcia RN Position: S RN Member Role: Primary Care Nurse Name: Janiya Mathews Position: [facility] Associate Professional Member Role: Lifetime Consulting Provider Address: Address: [address] [facility] [place] [address]- Name: Galo Jiang MD Position: [facility] Renal MD Member Role: Lifetime Consulting Physician Address: Address: [address] [place] [address] [facility] [place] [address]- Name: Saranya Kaufman RN Position: [facility] OB RN Member Role: Primary Care Nurse Name: Aliya Reeves RN Position: [facility] AMB Nurse Member Role: Primary Care Nurse Name: Trista Pablo RN Position: [facility] RN Member Role: Primary Care Nurse Name: Debbi Hernández RN Position: [facility] RN Member Role: Primary Care Nurse Name: Kristal Alvarez MD Position: [facility] Physician - Primary Care Member Role: PCP Address: Address: [address] [place] [address]- Name: Alyce Esteban RN, I Position: [facility] RN Member Role: Primary Care Nurse Name: Aspen Leon Position: S RN Member Role: Primary Care Nurse Care Team Related Persons Name: CASSIDY FALLCANDIDA Address: [address] [place] [address] Name: DEEPIKA BENJAMIN Address: [address] [place] [address] Name: DEEPIKA BENJAMIN Address: [address] [place] [address] Name: ERROL CONWAY
--- OUTSIDE RECORDS SUMMARY | 2024-04-04 11:32 | XMS_ITS | Continuity of Care Document ---
Author Organization [facility] Address [address] [place] [address]- Care Team Providers Care Dope Mixer Name Role Phone Kristal Alvarez MD Primary Care Physician Encounter [facility] Date(s): 01/14/24 - 02/13/[address] [id number] Allergies, Adverse Reactions, Alerts Substance [...] 17:30:00 EDT, Aerosol, Route to Pharmacy Electronically, [id number], [facility], 170, cm, 11/25/22 10:38:0... Start Date: [...] tablet, 3 Refills, Maintenance, 01/26/24 9:50:00 EDT, [facility], 164, cm, 01/20/24 13:25:00 EDT, Height, 140, kg, 01/15/24 6:54:00 EDT, Dry Weight Start Date: 01/26/24 Stop Date: 01/20/25 Status: Ordered apixaban 5 mg oral tablet 1 tablet = 5 mg, By Mouth, 2 times a day, # 60 tablet, 11 Refills, Maintenance, 07/21/23 16:42:00 EST, Tablet, [facility], Partial fill upon patient request if the prescription is fora schedule II opioid drug., 170, cm, 07/09/23 15:11... Start Date: 07/21/23 Stop Date: 07/15/24 Status: Ordered atorvastatin 20 mg oral tablet 1 tablet, By Mouth, Daily, # 90 tablet, 3 Refills, Maintenance, 05/27/23 9:56:00 EDT, [facility], 170, cm, 05/24/23 15:53:00 EDT, Height, 150, kg, 04/26/23 17:25:00 EDT, Dry Weight Start Date: 05/27/23 Stop Date: 05/21/24 Status: Ordered bisacodyl 10 mg rectal suppository 1 supp = 10 mg, Rectally, Daily, PRN for constipation, # 20 supp, 3 Refills, Maintenance, 09/03/23 16:21:00 EST, Suppository, [facility] #[id number], Partial fill upon patient request if the prescription is for a schedule II opioid drug., 170, cm... Start Date: 09/03/23 Status: Ordered calcium acetate 667 mg oral tablet 3 tablet = 2,001 mg, By Mouth, 3 times a day, # 270 tablet, 0 Refills, Maintenance, 09/23/23 15:50:00 EST, Tablet, [facility] #[id number], Partial fill upon patient request if the prescription is for a schedule II opioid drug., 170, cm, 09/03/23... Start Date: 09/23/23 Stop Date: 10/23/23 Status: Ordered carvedilol 25 mg oral tablet 1, tablet, By Mouth, 2 times a day, # 180 tablet, Refills 3, Tot. Refills 3, Maintenance, 09/23/23 15:50:00 EST, Route to Pharmacy Electronically, [facility] #[id number], 170, cm, 09/03/23 16:31:00 EST, Height, 141.6, [...] Replace Required Details, Route to Pharmacy Electronically, [facility], 170, cm, 07/09/23 15:11:... Start Date: [...] mL, 11 Refills, Maintenance, 03/25/23 9:48:00EDT, Solution, [facility]., decrease in dose, 170, cm, 01/29/23 [...] mL, 11 Refills, Maintenance, 03/25/23 9:47:00 EDT, [facility].... Start Date: 03/25/23 Status: Ordered Insulin [...] tablet, 3 Refills, Maintenance, 01/26/24 15:08:00 EDT, [facility] #[id number], 164, cm, 01/20/24 13:25:00 EDT, Height, 140, kg, 01/15/24 6:54:00 EDT, Dry Weight Start Date: 01/26/24 Status: Ordered MiraLax oral powder for reconstitution = 17 Gm, By Mouth, Daily, PRN Constipation, dissolve in water before taking, # 255 Gm, 0 Refills, Maintenance, 03/04/23 17:25:00 EDT, REC Powder, [facility] #[id number], Partial fill upon patient request if the [...] 02/25/24 15:07:00 EDT, 01/26/24 15:07:00 EDT, Tablet, [facility] #[id number], Partial fill upon patient request if the prescription is for a schedule II opioid... Start Date: 01/26/24 Stop Date: 02/25/24 Status: Ordered pantiliners pantiliners, See Instructions, # 120 each, Refills 11, Tot. Refills 11, Maintenance, dx: urinary incontinence, diabetic neuropathy ICD10: R32 duration: 99 needs 2 per night, 01/29/23 15:05:00 EDT, Supply Start Date: 01/29/23 Status: Ordered Pen [place], 32 G x 4 mm BD Ultra [...] Gm, 11 Refills, Maintenance, 09/03/23 16:21:00 EST, [facility] #[id number], Partial fill upon patient request if the [...] 0 Refills, Maintenance, 05/10/23 15:47:00 EDT, Tablet, [facility], Partial fill upon patient request [...] 3 Refills, Maintenance, 01/26/24 9:49:00 EDT, Tablet, [facility], Partial fill upon patient request if the prescription is for aschedule II opioid drug., 164, cm, 01/20/24 13:25:0... Start Date: 01/26/24 Stop Date: 05/25/24 Status: Ordered traZODone 100 mg oral tablet 200 mg, 2, tablet, By Mouth, Daily at bedtime, # 60 tablet, Refills 11, Tot. Refills 11, Maintenance, 02/08/24 12:28:00 EDT, Route to Pharmacy Electronically, [facility] #[id number], Partial fill upon patient request if the prescription is for a... Start Date: 02/08/24 Stop Date: 02/02/25 Status: Ordered traZODone 100 mg oral tablet 150 mg, 1.5, tablet, By Mouth, Daily at bedtime, # 45 tablet, Refills 5, Tot. Refills 5, Maintenance, 09/03/23 16:25:00 EST, Route to Pharmacy Electronically, [facility] #[id number], 170, cm, 09/03/23 16:31:00 EST, Height, 141.6, [...] 3 Refills, Maintenance, 12/30/23 12:08:00 EDT, [facility] 170, cm, 12/07/23 14:18:00 [...] dependence syndrome Confirmed Active [facility] tel [phone] fax [phone] Social History Social History Type Response Smoking Status 10 or more cigarette s (1/2 pack or more)/day in last 30 days entered on: 11/11/21 Sex Patient Care team information Care Team Personnel Name: Rebeca Pete RN Position: [facility] RN Member Role: Primary Care Nurse Name: Rebeca Khan RN Position: [facility] SN RN Member Role: Primary Care Nurse Name: Adams Joy MD Position: [facility] Renal MD Member Role: Lifetime Consulting Physician Address: Address: [address] [place] [address] [address] [facility] [place] [address]- Name: Korin Solares RN Position: [facility] RN Member Role: Primary Care Nurse Name: Flor Collado RN Position: [facility] Onco RN Member Role: Primary Care Nurse Name: Aliya Latham RN Position: [facility] Rad RN Member Role: Primary Care Nurse Name: Callie Reagan RN Position: [facility] RN Member Role: Primary Care Nurse Name: Korin Lopez RN Position: [facility] RN Member Role: Primary Care Nurse Name: Kim Means Position: [facility] Associate Professional Member Role: Lifetime Consulting Provider Address: Address: [address] [place] [address] [address] [facility] [place] [address]- [place] Name: Netta Brown RN Position: [facility] MR W/ [place]win Member Role: Primary Care Nurse Name: Marichuy Broussard RN Position: [facility] RN Member Role: Primary Care Nurse Name: Irineo Gale RN Position: [facility] RN Member Role: Primary Care Nurse Name: Radha Galye RN Position: [facility] AMB Nurse Member Role: Primary Care Nurse Name: Kendall Jasso RN Position: [facility] RN Member Role: Primary Care Nurse Name: Yecenia Quiles RN Position: [facility] RN Member Role: Primary Care Nurse Name: Joanna Boston RN Position: [facility] RN Member Role: Lifetime Consulting Physician Name: Aliya Nuñez NP Position: [facility] PCO Associate Professional Member Role: Primary Care Nurse Address: Address: [address] [place] [address]- [place] Name: Khloe Walsh RN Position: [facility] RN Member Role: Primary Care Nurse Name: Mila Jiang RN Position: [facility] RN Member Role: Primary Care Nurse Name: Darshana Estrada RN Position: [facility] RN Member Role: Primary Care Nurse Name: Hank Velasquez III, RN Position: [facility] RN Member Role: Primary Care Nurse Name: Matias Rivera Position: [facility] Associate Professional Member Role: Lifetime Consulting Provider Address: Address: [address] [place] [address]- Name: Leonid Kitchen Jr, RN Position: [facility] ED RN W/OE and Tasks Member Role: Primary Care Nurse Name: Mayur Cadena RN Position: [facility] RN Member Role: Primary Care Nurse Name: Rebeca Jaquez NP Position: [facility] Associate Professional Member Role: Primary Care Nurse Address: Address: [address] [facility] [place] [address]- [place] Name: Dalton Bills MD Position: [facility] Renal MD Member Role: Lifetime Consulting Physician Address: Address: [address] [place] [address] [address] [facility] [place] [address]- Name: Jagdeep Delcid RN Position: [facility] RN Member Role: Primary Care Nurse Name: Jen Kirk RN Position: [facility] RN Member Role: Primary Care Nurse Name: Denisa Garcia RN Position: [facility] RN Member Role: Primary Care Nurse Name: Janiya Mathews Position: [facility] Associate Professional Member Role: Lifetime Consulting Provider Address: Address: [address] [place] [address] [facility] [place] [address]- [place] Name: Galo Jiang MD Position: [facility] Renal MD Member Role: Lifetime Consulting Physician Address: Address: [address] [place] [address] [facility] [place] [address]- [place] Name: Saranya Kaufman RN Position: [facility] OB RN Member Role: Primary Care Nurse Name: Aliya Reeves RN Position: [facility] AMB Nurse Member Role: Primary Care Nurse Name: Trista Pablo RN Position: [facility] RN Member Role: Primary Care Nurse Name: Debbi Hernández RN Position: [facility] RN Member Role: Primary Care Nurse Name: Kristal Alvarez MD Position: [facility] Physician - Primary Care Member Role: PCP Address: Address: [address] [place] [id number] Name: Alyce Esteban RN, I Position: [facility] RN Member Role: Primary Care Nurse Name: Aspen Leon Position: [facility] RN Member Role: Primary Care Nurse Care Team Related Persons Name: CASSIDY BILLYLOLISANNIEBREONNARula Address: home [address] [place] [address] Name: CASSIDY DEEPIKA Address: home [address] [place] [address] Name: CASSIDY DEEPIKA Address: home [address] [place] [address] Name: ERROL CONWAY
--- OUTSIDE RECORDS SUMMARY | 2024-04-04 11:32 | XMS_ITS | Continuity of Care Document ---
Author Organization [facility] Address [address] [place] [address]- Care Team Providers Care Teacher Kindergarten Name Role Phone Kristal Alvarez MD Primary Care Physician Encounter [facility] [id number] Date(s): 01/26/24 - 02/25/[address] [id number] Allergies, Adverse Reactions, Alerts Substance [...] 17:30:00 EDT, Aerosol, Route to Pharmacy Electronically, [id number], [facility], 170, cm, 11/25/22 10:38:0... Start Date: [...] tablet, 3 Refills, Maintenance, 01/26/24 9:50:00 EDT, [facility], 164, cm, 01/20/24 13:25:00 EDT, Height, 140, kg, 01/15/24 6:54:00 EDT, Dry Weight Start Date: 01/26/24 Stop Date: 01/20/25 Status: Ordered apixaban 5 mg oral tablet 1 tablet = 5 mg, By Mouth, 2 times a day, # 60 tablet, 11 Refills, Maintenance, 07/21/23 16:42:00 EST, Tablet, [facility], Partial fill upon patient request if the prescription is fora schedule II opioid drug., 170, cm, 07/09/23 15:11... Start Date: 07/21/23 Stop Date: 07/15/24 Status: Ordered atorvastatin 20 mg oral tablet 1 tablet, By Mouth, Daily, # 90 tablet, 3 Refills, Maintenance, 05/27/23 9:56:00 EDT, [facility], 170, cm, 05/24/23 15:53:00 EDT, Height, 150, kg, 04/26/23 17:25:00 EDT, Dry Weight Start Date: 05/27/23 Stop Date: 05/21/24 Status: Ordered bisacodyl 10 mg rectal suppository 1 supp = 10 mg, Rectally, Daily, PRN for constipation, # 20 supp, 3 Refills, Maintenance, 09/03/23 16:21:00 EST, Suppository, [facility] #[id number], Partial fill upon patient request if the prescription is for a schedule II opioid drug., 170, cm... Start Date: 09/03/23 Status: Ordered calcium acetate 667 mg oral tablet 3 tablet = 2,001 mg, By Mouth, 3 times a day, # 270 tablet, 0 Refills, Maintenance, 09/23/23 15:50:00 EST, Tablet, [facility] #[id number], Partial fill upon patient request if the prescription is for a schedule II opioid drug., 170, cm, 09/03/23... Start Date: 09/23/23 Stop Date: 10/23/23 Status: Ordered carvedilol 25 mg oral tablet 1, tablet, By Mouth, 2 times a day, # 180 tablet, Refills 3, Tot. Refills 3, Maintenance, 09/23/23 15:50:00 EST, Route to Pharmacy Electronically, [facility] #[id number], 170, cm, 09/03/23 16:31:00 EST, Height, 141.6, [...] Replace Required Details, Route to Pharmacy Electronically, [facility], 170, cm, 07/09/23 15:11:... Start Date: [...] mL, 11 Refills, Maintenance, 03/25/23 9:48:00EDT, Solution, [facility]., decrease in dose, 170, cm, 01/29/23 [...] mL, 11 Refills, Maintenance, 03/25/23 9:47:00 EDT, [facility].... Start Date: 03/25/23 Status: Ordered Insulin [...] tablet, 3 Refills, Maintenance, 01/26/24 15:08:00 EDT, [facility] #[id number], 164, cm, 01/20/24 13:25:00 EDT, Height, 140, kg, 01/15/24 6:54:00 EDT, Dry Weight Start Date: 01/26/24 Status: Ordered MiraLax oral powder for reconstitution = 17 Gm, By Mouth, Daily, PRN Constipation, dissolve in water before taking, # 255 Gm, 0 Refills, Maintenance, 03/04/23 17:25:00 EDT, REC Powder, [facility] #[id number], Partial fill upon patient request if the [...] Supply Start Date: 01/29/23 Status: Ordered Pen [place], 32 G x 4 mm BD Ultra [...] Gm, 11 Refills, Maintenance, 09/03/23 16:21:00 EST, [facility] #[id number], Partial fill upon patient request if the [...] tablet, 3 Refills, Maintenance, 02/25/24 16:28:00 EDT, [facility], 164, cm, 02/08/24 11:45:00 EDT, [...] 3 Refills, Maintenance, 01/26/24 9:49:00 EDT, Tablet, [facility], Partial fill upon patient request if the prescription is for aschedule II opioid drug., 164, cm, 01/20/24 13:25:0... Start Date: 01/26/24 Stop Date: 05/25/24 Status: Ordered traZODone 100 mg oral tablet 200 mg, 2, tablet, By Mouth, Daily at bedtime, # 60 tablet, Refills 11, Tot. Refills 11, Maintenance, 02/08/24 12:28:00 EDT, Route to Pharmacy Electronically, [facility] #[id number], Partial fill upon patient request if the prescription is for a... Start Date: 02/08/24 Stop Date: 02/02/25 Status: Ordered traZODone 100 mg oral tablet 150 mg, 1.5, tablet, By Mouth, Daily at bedtime, # 45 tablet, Refills 5, Tot. Refills 5, Maintenance, 09/03/23 16:25:00 EST, Route to Pharmacy Electronically, [facility] #[id number], 170, cm, 09/03/23 16:31:00 EST, Height, 141.6, [...] tablet, 3 Refills, Maintenance, 12/30/23 12:08:00 EDT, [facility] 170, cm, 12/07/23 14:18:00 EDT, Height, [...] dependence syndrome Confirmed Active [facility] tel [phone] fax [phone] Social History Social History Type Response Smoking Status 10 or more cigarette s (1/2 pack or more)/day in last 30 days entered on: 11/11/21 Sex Patient Care team information Care Team Personnel Name: Rebeca Pete RN Position: [facility] RN Member Role: Primary Care Nurse Name: Rebeca Khan RN Position: [facility] SN RN Member Role: Primary Care Nurse Name: Adams Joy MD Position: [facility] Renal MD Member Role: Lifetime Consulting Physician Address: Address: [address] [place] [address] [address] [facility] [address]- [place] Name: Korin Solares RN Position: [facility] RN Member Role: Primary Care Nurse Name: Flor Collado RN Position: [facility] Onco RN Member Role: Primary Care Nurse Name: Aliya Latham RN Position: [facility] Rad RN Member Role: Primary Care Nurse Name: Callei Reagan RN Position: [facility] RN Member Role: Primary Care Nurse Name: Korin Lopez RN Position: [facility] RN Member Role: Primary Care Nurse Name: Kim Means Position: [facility] Associate Professional Member Role: Lifetime Consulting Provider Address: Address: [address] [facility] [address] [place] [address]- [place] Name: Netta Brown RN Position: [facility] MR W/ [place]ge Member Role: Primary Care Nurse Name: Marichuy Broussard RN Position: [facility] RN Member Role: Primary Care Nurse Name: Irineo Gale RN Position: [facility] RN Member Role: Primary Care Nurse Name: Radha Gayle RN Position: [facility] AMB Nurse Member Role: Primary Care Nurse Name: Kendall Jasso RN Position: [facility] RN Member Role: Primary Care Nurse Name: Yecenia Quiles RN Position: [facility] RN Member Role: Primary Care Nurse Name: Joanna Boston RN Position: [facility] RN Member Role: Lifetime Consulting Physician Name: Aliya Nuñez NP Position: [facility] PCO Associate Professional Member Role: Primary Care Nurse Address: Address: [address] [place] [address]- [place] Name: Khloe Walsh RN Position: [facility] RN Member Role: Primary Care Nurse Name: Mila Jiang RN Position: [facility] RN Member Role: Primary Care Nurse Name: Darshana Estrada RN Position: [facility] RN Member Role: Primary Care Nurse Name: Yaritza Velasquez III, RN Position: [facility] RN Member Role: Primary Care Nurse Name: Matias Rivera Position: [facility] Associate Professional Member Role: Lifetime Consulting Provider Address: Address: [address] [place] [address]- Name: Leonid Kitchen Jr, RN Position: [facility] ED RN W/OE and Tasks Member Role: Primary Care Nurse Name: Mayur Cadena RN Position: [facility] RN Member Role: Primary Care Nurse Name: Rebeca Jaquez NP Position: [facility] PCO Associate Professional Member Role: Primary Care Nurse Address: Address: [address] [place] [address] [place] [address]- [place] Name: Dalton Bills MD Position: [facility] Renal MD Member Role: Lifetime Consulting Physician Address: Address: [address] [place] [address] [address] [facility] [place] [address]- Name: Jagdeep Delcid RN Position: [facility] RN Member Role: Primary Care Nurse Name: Jen Kirk RN Position: [facility] RN Member Role: Primary Care Nurse Name: Denisa Garcia RN Position: [facility] RN Member Role: Primary Care Nurse Name: Janiya Mathews Position: [facility] Associate Professional Member Role: Lifetime Consulting Provider Address: Address: [address] [place] [address] [facility] [place] [address]- Name: Galo Jiang MD Position: [facility] Renal MD Member Role: Lifetime Consulting Physician Address: Address: [address] [place] [address] [facility] [place] [address]- [place] Name: Saranya Kaufman RN Position: [facility] OB RN Member Role: Primary Care Nurse Name: Aliya Reeves RN Position: [facility] AMB Nurse Member Role: Primary Care Nurse Name: Trista Pablo RN Position: [facility] RN Member Role: Primary Care Nurse Name: Debbi Hernández RN Position: [facility] RN Member Role: Primary Care Nurse Name: Kristal Alvarez MD Position: [facility] Physician - Primary Care Member Role: PCP Address: Address: [address] [place] [address]- [place] Name: Alyce Esteban RN, I Position: [facility] RN Member Role: Primary Care Nurse Name: Aspen Leon Position: S RN Member Role: Primary Care Nurse Care Team Related Persons Name: CANDIDA PETTY Address: [address] [place] [address] Name: DEEPIKA BENJAMIN Address: [address] [place] [address] Name: DEEPIKA BENJAMIN Address: [address] [place] [address] Name: ERROL CONWAY
== END ==
PROVIDERS: PCP Internal Medicine; Visit Provider Internal Medicine Nephrology
DX: N18.6 End stage renal disease (principal)
CPT/HCPCS: 90962

== ENCOUNTER → 2024-03-26 | Outpatient (BNV) | payer OTHER, SELFPAY ==
--- OUTSIDE RECORDS SUMMARY | 2024-04-27 10:21 | XMS_ITS | Continuity of Care Document ---
Author Organization [facility] Address [address] [place] [address]- Care Team Providers Care Laminator Preforms Name Role Phone Kristal Alvarez MD Primary Care Physician Encounter [facility] Date(s): 03/17/24 - 04/16/[address] [id number] Allergies, Adverse Reactions, Alerts Substance Reaction Severity [...] 17:30:00 EDT, Aerosol, Route to Pharmacy Electronically, [id number], [facility], 170, cm, 11/25/22 10:38:0... Start Date: 12/25/22 [...] tablet, 3 Refills, Maintenance, 01/26/24 9:50:00 EDT, [facility] 3, 164, cm, 01/20/24 13:25:00 EDT, Height, 140, kg, 01/15/24 6:54:00 EDT, Dry Weight Start Date: 01/26/24 Stop Date: 01/20/25 Status: Ordered apixaban 5 mg oral tablet 1 tablet = 5 mg, By Mouth, 2 times a day, # 60 tablet, 11 Refills, Maintenance, 07/21/23 16:42:00 EST, Tablet, [facility], Partial fill upon patient request if the prescription is fora schedule II opioid drug., 170, cm, 07/09/23 15:11... Start Date: 07/21/23 Stop Date: 07/15/24 Status: Ordered atorvastatin 20 mg oral tablet 1 tablet, By Mouth, Daily, # 90 tablet, 3 Refills, Maintenance, 05/27/23 9:56:00 EDT, [facility]., 170, cm, 05/24/23 15:53:00 EDT, Height, 150, kg, 04/26/23 17:25:00 EDT, Dry Weight Start Date: 05/27/23 Stop Date: 05/21/24 Status: Ordered bisacodyl 10 mg rectal suppository 1 supp = 10 mg, Rectally, Daily, PRN for constipation, # 20 supp, 3 Refills, Maintenance, 09/03/23 16:21:00 EST, Suppository, [facility] #[id number], Partial fill upon patient request if the prescription is for a schedule II opioid drug., 170, cm... Start Date: 09/03/23 Status: Ordered calcium acetate 667 mg oral tablet 3 tablet = 2,001 mg, By Mouth, 3 times a day, # 270 tablet, 0 Refills, Maintenance, 09/23/23 15:50:00 EST, Tablet, [facility] #[id number], Partial fill upon patient request if the prescription is for a schedule II opioid drug., 170, cm, 09/03/23... Start Date: 09/23/23 Stop Date: 10/23/23 Status: Ordered carvedilol 25 mg oral tablet 1, tablet, By Mouth, 2 times a day, # 180 tablet, Refills 3, Tot. Refills 3, Maintenance, 09/23/23 15:50:00 EST, Route to Pharmacy Electronically, [facility] #[id number], 170, cm, 09/03/23 16:31:00 EST, Height, 141.6, [...] 04/21/24 13:29:00 EDT, 03/24/24 13:29:00 EDT, Tablet, [facility] #[id number], Partial fill upon patient request if the [...] Replace Required Details, Route to Pharmacy Electronically, [facility], 164, cm, 02/08/24 11:45:... Start Date: 03/22/24 [...] mL, 11 Refills, Maintenance, 03/25/23 9:48:00EDT, Solution, [facility], decrease in dose, 170, cm, 01/29/23 13:41:00 [...] mL, 11 Refills, Maintenance, 03/22/24 12:14:00 EDT, [facility].. Start Date: 03/22/24 Status: Ordered Insulin Syringe, [...] tablet, 3 Refills, Maintenance, 01/26/24 15:08:00 EDT, [facility] #[id number], 164, cm, 01/20/24 13:25:00 EDT, Height, 140, kg, 01/15/24 6:54:00 EDT, Dry Weight Start Date: 01/26/24 Status: Ordered MiraLax oral powder for reconstitution = 17 Gm, By Mouth, Daily, PRN Constipation, dissolve in water before taking, # 255 Gm, 0 Refills, Maintenance, 03/04/23 17:25:00 EDT, REC Powder, [facility] #[id number], Partial fill upon patient request if the [...] 04/28/24 12:08:00 EDT, 03/29/24 12:08:00 EDT, Tablet, [facility] #[id number], Partial fill upon patient request if the prescription is for a schedule II opioid... Start Date: 03/29/24 Stop Date: 04/28/24 Status: Ordered pantiliners pantiliners, See Instructions, # 120 each, Refills 11, Tot. Refills 11, Maintenance, dx: urinary incontinence, diabetic neuropathy ICD10: R32 duration: 99 needs 2 per night, 01/29/23 15:05:00 EDT, Supply Start Date: 01/29/23 Status: Ordered Pen [place], 32 G x 4 mm BD Ultra [...] incontinence, T2DM ICD10: R32, E11.4 duration: 99, 03/08/24 13:26:00 EDT, Supply Start Date: 03/08/24 Status: Ordered Protective Ointment with Vitamins A&D topical ointment See Instructions, Topically 4 times a day to affected areas, # 120 Gm, 11 Refills, Maintenance, 09/03/23 16:21:00 EST, [facility] #[id number], Partial fill upon patient request if the [...] tablet, 3 Refills, Maintenance, 02/25/24 16:28:00 EDT, [facility], 164, cm, 02/08/24 11:45:00 EDT, Height, [...] 3 Refills, Maintenance, 01/26/24 9:49:00 EDT, Tablet, [facility] 3, Partial fill upon patient request if the prescription is for aschedule II opioid drug., 164, cm, 01/20/24 13:25:0... Start Date: 01/26/24 Stop Date: 05/25/24 Status: Ordered traZODone 100 mg oral tablet 200 mg, 2, tablet, By Mouth, Daily at bedtime, # 60 tablet, Refills 1, Tot. Refills 1, Maintenance,03/22/24 12:14:00 EDT, Route to Pharmacy Electronically, [facility], Partial fill upon patient request if the prescription is for a matthieu... Start Date: 03/22/24 Stop Date: 05/21/24 Status: Ordered traZODone 100 mg oral tablet 150 mg, 1.5, tablet, By Mouth, Daily at bedtime, # 45 tablet, Refills 5, Tot. Refills 5, Maintenance, 09/03/23 16:25:00 EST, Route to Pharmacy Electronically, [facility] #[id number], 170, cm, 09/03/23 16:31:00 EST, Height, 141.6, kg, 08/04/23 23:... Start Date: 09/03/23 Status: Ordered Trulicity Pen 0.75 mg/0.5 mL subcutaneous solution 0.5 mL = 0.75 mg, Subcutaneous Injection, Every week, for weight loss, # 2 mL, 3 Refills, Maintenance, 03/15/24 16:35:00 EDT, Solution, [facility], Partial fill upon patient request if the [...] 3 Refills, Maintenance, 12/30/23 12:08:00 EDT, [facility] 170, cm, 12/07/23 14:18:00 EDT, [...] dependence syndrome Confirmed Active [facility] tel [phone] fax [phone] Social History Social History Type Response Smoking Status 10 or more cigarette s (1/2 pack or more)/day in last 30 days entered on: 11/11/21 Sex Patient Care team information Care Team Personnel Name: Rebeca Pete RN Position: [facility] RN Member Role: Primary Care Nurse Name: Rebeca Khan RN Position: [facility] SN RN Member Role: Primary Care Nurse Name: Adams Joy MD Position: [facility] Renal MD Member Role: Lifetime Consulting Physician Address: Address: [address] [place] [address] [address] [facility] [place] [address]- Name: Korin Solares RN Position: S RN Member Role: Primary Care Nurse Name: Flor Collado RN Position: [facility] Onco RN Member Role: Primary Care Nurse Name: Aliya Latham RN Position: [facility] Rad RN Member Role: Primary Care Nurse Name: Silvia Mejía Position: [facility] Outreach Member Role: Lifetime Consulting Physician Name: Callie Reagan RN Position: [facility] RN Member Role: Primary Care Nurse Name: Korin Lopez RN Position: [facility] RN Member Role: Primary Care Nurse Name: Kim Means Position: [facility] Associate Professional Member Role: Lifetime Consulting Provider Address: Address: [address] [place] [address] [address] [facility] [place] [address]- Name: Netta Brown RN Position: [facility] MR W/ Merge Member Role: Primary Care Nurse Name: Marichuy Broussard RN Position: [facility] RN Member Role: Primary Care Nurse Name: Irineo Gale RN Position: [facility] RN Member Role: Primary Care Nurse Name: Radha Gayle RN Position: [facility] AMB Nurse Member Role: Primary Care Nurse Name: Kendall Jasso RN Position: [facility] RN Member Role: Primary Care Nurse Name: Yecenia Quiles RN Position: [facility] RN Member Role: Primary Care Nurse Name: Joanna Boston RN Position: [facility] RN Member Role: Lifetime Consulting Physician Name: Aliya Nuñez NP Position: [facility] PCO Associate Professional Member Role: Primary Care Nurse Address: Address: [address] [place] [address]- Name: Khloe Walsh RN Position: [facility] RN Member Role: Primary Care Nurse Name: Mila Jiang RN Position: [facility] RN Member Role: Primary Care Nurse Name: Darshana Estrada RN Position: [facility] RN Member Role: Primary Care Nurse Name: Hank Velasquez III, RN Position: [facility] RN Member Role: Primary Care Nurse Name: Matias Rivera Position: [facility] Associate Professional Member Role: Lifetime Consulting Provider Address: Address: [address] [place] [address]- Name: Leonid Kitchen Jr, RN Position: [facility] AMBERLY RN W/OE and Tasks Member Role: Primary Care Nurse Name: Mayur Cadena RN Position: [facility] RN Member Role: Primary Care Nurse Name: Rebeca Jaquez NP Position: [facility] PCO Associate Professional Member Role: Primary Care Nurse Address: Address: [address] [place] [address] [facility] [address]- [place] Name: Dalton Bills MD Position: [facility] Renal MD Member Role: Lifetime Consulting Physician Address: Address: [address] [place] [address] [address] [facility] [place] [place] [address]- [place] Name: Jagdeep Delcid RN Position: S RN Member Role: Primary Care Nurse Name: Jen Kirk RN Position: S RN Member Role: Primary Care Nurse Name: Denisa Garcia RN Position: S RN Member Role: Primary Care Nurse Name: Janiya Mathews Position: [facility] Associate Professional Member Role: Lifetime Consulting Provider Address: Address: [address] [place] [address] [facility] [place] [address]- [place] Name: Galo Jiang MD Position: [facility] Renal MD Member Role: Lifetime Consulting Physician Address: Address: [address] [place] [address] [facility] [place] [address]- [place] Name: Saranya Kaufman RN Position: [facility] OB RN Member Role: Primary Care Nurse Name: Aliya Reeves RN Position: [facility] AMB Nurse Member Role: Primary Care Nurse Name: Trista Pablo RN Position: [facility] RN Member Role: Primary Care Nurse Name: Debbi Hernández RN Position: [facility] RN Member Role: Primary Care Nurse Name: Kristal Alvarez MD Position: [facility] Physician - Primary Care Member Role: PCP Address: Address: [address] [place] [address]- Name: Alyec Esteban RN, I Position: [facility] RN Member Role: Primary Care Nurse Name: Aspen Leon Position: S RN Member Role: Primary Care Nurse Care Team Related Persons Name: JUAN MANUEL PETTYRula Address: [address] [place] [address] Name: DEEPIKA BENJAMIN Address: [address] [place] [address] Name: DEEPIKA BENJAMIN Address: [address] [place] [address] Name: ERROL CONWAY
--- OUTSIDE RECORDS SUMMARY | 2024-04-27 10:25 | XMS_ITS | Continuity of Care Document ---
Author Organization [facility] Address [address], [address] [place] [address]- Care Team Providers Care Hold Worker Name Role Phone Kristal Alvarez MD Primary Care Physician Encounter [facility] Date(s): 03/21/24 - 04/20/24 [facility] [address], [address] [place], [place] [address] Allergies, Adverse Reactions, Alerts [...] 17:30:00 EDT, Aerosol, Route to Pharmacy Electronically, [id number], [facility], 170, cm, 11/25/22 10:38:0... Start Date: [...] tablet, 3 Refills, Maintenance, 01/26/24 9:50:00 EDT, [facility] 3, 164, cm, 01/20/24 13:25:00 EDT, Height, 140, kg, 01/15/24 6:54:00 EDT, Dry Weight Start Date: 01/26/24 Stop Date: 01/20/25 Status: Ordered apixaban 5 mg oral tablet 1 tablet = 5 mg, By Mouth, 2 times a day, # 60 tablet, 11 Refills, Maintenance, 07/21/23 16:42:00 EST, Tablet, [facility], Partial fill upon patient request if the prescription is fora schedule II opioid drug., 170, cm, 07/09/23 15:11... Start Date: 07/21/23 Stop Date: 07/15/24 Status: Ordered atorvastatin 20 mg oral tablet 1 tablet, By Mouth, Daily, # 90 tablet, 3 Refills, Maintenance, 05/27/23 9:56:00 EDT, [facility] 170, cm, 05/24/23 15:53:00 EDT, Height, 150, kg, 04/26/23 17:25:00 EDT, Dry Weight Start Date: 05/27/23 Stop Date: 05/21/24 Status: Ordered bisacodyl 10 mg rectal suppository 1 supp = 10 mg, Rectally, Daily, PRN for constipation, # 20 supp, 3 Refills, Maintenance, 09/03/23 16:21:00 EST, Suppository, [facility] #[id number], Partial fill upon patient request if the prescription is for a schedule II opioid drug., 170, cm... Start Date: 09/03/23 Status: Ordered calcium acetate 667 mg oral tablet 3 tablet = 2,001 mg, By Mouth, 3 times a day, # 270 tablet, 0 Refills, Maintenance, 09/23/23 15:50:00 EST, Tablet, [facility] #[id number], Partial fill upon patient request if the prescription is for a schedule II opioid drug., 170, cm, 09/03/23... Start Date: 09/23/23 Stop Date: 10/23/23 Status: Ordered carvedilol 25 mg oral tablet 1, tablet, By Mouth, 2 times a day, # 180 tablet, Refills 3, Tot. Refills 3, Maintenance, 09/23/23 15:50:00 EST, Route to Pharmacy Electronically, [facility] #[id number], 170, cm, 09/03/23 16:31:00 EST, Height, 141.6, [...] 04/21/24 13:29:00 EDT, 03/24/24 13:29:00 EDT, Tablet, [facility] #[id number], Partial fill upon patient request if the [...] Replace Required Details, Route to Pharmacy Electronically, [facility], 164, cm, 02/08/24 11:45:... Start Date: [...] mL, 11 Refills, Maintenance, 03/25/23 9:48:00EDT, Solution, [facility], decrease in dose, 170, cm, 01/29/23 13:41:00 [...] mL, 11 Refills, Maintenance, 03/22/24 12:14:00 EDT, [facility].. Start Date: 03/22/24 Status: Ordered Insulin [...] tablet, 3 Refills, Maintenance, 01/26/24 15:08:00 EDT, [facility] #[id number], 164, cm, 01/20/24 13:25:00 EDT, Height, 140, kg, 01/15/24 6:54:00 EDT, Dry Weight Start Date: 01/26/24 Status: Ordered MiraLax oral powder for reconstitution = 17 Gm, By Mouth, Daily, PRN Constipation, dissolve in water before taking, # 255 Gm, 0 Refills, Maintenance, 03/04/23 17:25:00 EDT, REC Powder, [facility] #[id number], Partial fill upon patient request if the [...] 04/28/24 12:08:00 EDT, 03/29/24 12:08:00 EDT, Tablet, [facility] #[id number], Partial fill upon patient request if the prescription is for a schedule II opioid... Start Date: 03/29/24 Stop Date: 04/28/24 Status: Ordered pantiliners pantiliners, See Instructions, # 120 each, Refills 11, Tot. Refills 11, Maintenance, dx: urinary incontinence, diabetic neuropathy ICD10: R32 duration: 99 needs 2 per night, 01/29/23 15:05:00 EDT, Supply Start Date: 01/29/23 Status: Ordered Pen [place], 32 G x 4 mm BD Ultra [...] Gm, 11 Refills, Maintenance, 09/03/23 16:21:00 EST, [facility] #[id number], Partial fill upon patient request if the [...] tablet, 3 Refills, Maintenance, 02/25/24 16:28:00 EDT, [facility], 164, cm, 02/08/24 11:45:00 EDT, Height, [...] 3 Refills, Maintenance, 01/26/24 9:49:00 EDT, Tablet, [facility] 3, Partial fill upon patient request if the prescription is for aschedule II opioid drug., 164, cm, 01/20/24 13:25:0... Start Date: 01/26/24 Stop Date: 05/25/24 Status: Ordered traZODone 100 mg oral tablet 200 mg, 2, tablet, By Mouth, Daily at bedtime, # 60 tablet, Refills 1, Tot. Refills 1, Maintenance,03/22/24 12:14:00 EDT, Route to Pharmacy Electronically, [facility], Partial fill upon patient request if the prescription is for a matthieu... Start Date: 03/22/24 Stop Date: 05/21/24 Status: Ordered traZODone 100 mg oral tablet 150 mg, 1.5, tablet, By Mouth, Daily at bedtime, # 45 tablet, Refills 5, Tot. Refills 5, Maintenance, 09/03/23 16:25:00 EST, Route to Pharmacy Electronically, [facility] #[id number], 170, cm, 09/03/23 16:31:00 EST, Height, 141.6, kg, 08/04/23 23:... Start Date: 09/03/23 Status: Ordered Trulicity Pen 0.75 mg/0.5 mL subcutaneous solution 0.5 mL = 0.75 mg, Subcutaneous Injection, Every week, for weight loss, # 2 mL, 3 Refills, Maintenance, 03/15/24 16:35:00 EDT, Solution, [facility], Partial fill upon patient request if [...] 3 Refills, Maintenance, 12/30/23 12:08:00 EDT, [facility] 170, cm, 12/07/23 14:18:00 EDT, [...] dependence syndrome Confirmed Active [facility] tel [phone] fax [phone] Social History Social History Type Response Smoking Status 10 or more cigarette s (1/2 pack or more)/day in last 30 days entered on: 11/11/21 Sex Patient Care team information Care Team Personnel Name: Rebeca Pete RN Position: [facility] RN Member Role: Primary Care Nurse Name: Rebeca Khan RN Position: [facility] SN RN Member Role: Primary Care Nurse Name: Adams Joy MD Position: [facility] Renal MD Member Role: Lifetime Consulting Physician Address: Address: [address] [place] [address] [address] [place] [address]- Name: Korin Solares RN Position: S RN Member Role: Primary Care Nurse Name: Flor Collado RN Position: [facility] Onco RN Member Role: Primary Care Nurse Name: Aliya Latham RN Position: [facility] Rad RN Member Role: Primary Care Nurse Name: Silvia Mejía Position: [facility] Outreach Member Role: Lifetime Consulting Physician Name: Callie Reagan RN Position: [facility] RN Member Role: Primary Care Nurse Name: Korin Lopez RN Position: [facility] RN Member Role: Primary Care Nurse Name: Kim Means Position: [facility] Associate Professional Member Role: Lifetime Consulting Provider Address: Address: [address] [facility] [place] [address]- Name: Netta Brown RN Position: [facility] MR W/ Merge Member Role: Primary Care Nurse Name: Marichuy Broussard RN Position: [facility] RN Member Role: Primary Care Nurse Name: Irineo Gale RN Position: [facility] RN Member Role: Primary Care Nurse Name: Radha Gayle RN Position: [facility] AMB Nurse Member Role: Primary Care Nurse Name: Kendall Jasso RN Position: [facility] RN Member Role: Primary Care Nurse Name: Yecenia Quiles RN Position: [facility] RN Member Role: Primary Care Nurse Name: Joanna Boston RN Position: [facility] RN Member Role: Lifetime Consulting Physician Name: Aliya Nuñez NP Position: [facility] PCO Associate Professional Member Role: Primary Care Nurse Address: Address: [address] [place] [address]- Name: Khloe Walsh RN Position: [facility] RN Member Role: Primary Care Nurse Name: Mila Jiang RN Position: [facility] RN Member Role: Primary Care Nurse Name: Darshana Estrada RN Position: [facility] RN Member Role: Primary Care Nurse Name: Hank Velasquez III, RN Position: [facility] RN Member Role: Primary Care Nurse Name: Matias Rivera Position: [facility] Associate Professional Member Role: Lifetime Consulting Provider Address: Address: [address] [facility] [place] [address]- Name: Leonid Kitchen Jr, RN Position: [facility] AMBERLY RN W/OE and Tasks Member Role: Primary Care Nurse Name: Mayur Cadena RN Position: [facility] RN Member Role: Primary Care Nurse Name: Rebeca Jaquez NP Position: [facility] PCO Associate Professional Member Role: Primary Care Nurse Address: Address: [address] [facility] [address]- [place] Name: Dalton Bills MD Position: [facility] Renal MD Member Role: Lifetime Consulting Physician Address: Address: [address] [facility] [place] [place] [address]- [place] Name: Jagdepe Delcid RN Position: [facility] RN Member Role: Primary Care Nurse Name: Jen Kirk RN Position: [facility] RN Member Role: Primary Care Nurse Name: Denisa Garcia RN Position: [facility] RN Member Role: Primary Care Nurse Name: Janiya Mathews Position: [facility] Associate Professional Member Role: Lifetime Consulting Provider Address: Address: [address] [facility] [place] [address]- [place] Name: Galo Jiang MD Position: [facility] Renal MD Member Role: Lifetime Consulting Physician Address: Address: [address] [facility] [place], [place] - Name: Saranya Kaufman RN Position: [facility] OB RN Member Role: Primary Care Nurse Name: Aliya Reeves RN Position: [facility] AMB Nurse Member Role: Primary Care Nurse Name: Trista Pablo RN Position: [facility] RN Member Role: Primary Care Nurse Name: Debbi Hernández RN Position: [facility] RN Member Role: Primary Care Nurse Name: Kristal Alvarez MD Position: [facility] Physician - Primary Care Member Role: PCP Address: Address: [address] [place], [place] - Name: Alyce Esteban RN, I Position: [facility] RN Member Role: Primary Care Nurse Name: Aspen Leon Position: [facility] RN Member Role: Primary Care Nurse Care Team Related Persons Name: CASSIDY FALLCANDIDA Address: [address] [place] [address] Name: DEEPIKA BENJAMIN Address: [address] [place] [address] Name: DEEPIKA BENJAMIN Address: [address] [place] [address] Name: ERROL CONWAY
--- OUTSIDE RECORDS SUMMARY | 2024-04-27 10:27 | XMS_ITS | Continuity of Care Document ---
Author Organization [facility] [place] Address [address] [place] [address]- Care Team Providers Care Chief Wheelage Clerk Name Role Phone Kristal Alvarez MD Primary Care Physician [phone] Encounter [facility] Date(s): 03/24/24 - 04/23/[address] [id number] Allergies, Adverse Reactions, Alerts Substance [...] 17:30:00 EDT, Aerosol, Route to Pharmacy Electronically, [id number], [facility], 170, cm, 11/25/22 10:38:0... Start [...] tablet, 3 Refills, Maintenance, 01/26/24 9:50:00 EDT, [facility] 3, 164, cm, 01/20/24 13:25:00 EDT, Height, 140, kg, 01/15/24 6:54:00 EDT, Dry Weight Start Date: 01/26/24 Stop Date: 01/20/25 Status: Ordered apixaban 5 mg oral tablet 1 tablet = 5 mg, By Mouth, 2 times a day, # 60 tablet, 11 Refills, Maintenance, 07/21/23 16:42:00 EST, Tablet, [facility], Partial fill upon patient request if the prescription is fora schedule II opioid drug., 170, cm, 07/09/23 15:11... Start Date: 07/21/23 Stop Date: 07/15/24 Status: Ordered atorvastatin 20 mg oral tablet 1 tablet, By Mouth, Daily, # 90 tablet, 3 Refills, Maintenance, 05/27/23 9:56:00 EDT, [facility]., 170, cm, 05/24/23 15:53:00 EDT, Height, 150, kg, 04/26/23 17:25:00 EDT, Dry Weight Start Date: 05/27/23 Stop Date: 05/21/24 Status: Ordered bisacodyl 10 mg rectal suppository 1 supp = 10 mg, Rectally, Daily, PRN for constipation, # 20 supp, 3 Refills, Maintenance, 09/03/23 16:21:00 EST, Suppository, [id number], Partial fill upon patient request if the prescription is for a schedule II opioid drug., 170, cm... Start Date: 09/03/23 Status: Ordered calcium acetate 667 mg oral tablet 3 tablet = 2,001 mg, By Mouth, 3 times a day, # 270 tablet, 0 Refills, Maintenance, 09/23/23 15:50:00 EST, Tablet, [facility] #[id number], Partial fill upon patient request if the prescription is for a schedule II opioid drug., 170, cm, 09/03/23... Start Date: 09/23/23 Stop Date: 10/23/23 Status: Ordered carvedilol 25 mg oral tablet 1, tablet, By Mouth, 2 times a day, # 180 tablet, Refills 3, Tot. Refills 3, Maintenance, 09/23/23 15:50:00 EST, Route to Pharmacy Electronically, [facility] #[id number], 170, cm, 09/03/23 16:31:00 EST, Height, 141.6, [...] EDT, Supply Start Date: 03/02/24 Status: Ordered Freestyle Lite Monitor See Instructions, [...] Required Details, Route to Pharmacy Electronically, [facility], 164, cm, 02/08/24 11:45:... Start Date: 03/22/24 [...] mL, 11 Refills, Maintenance, 03/25/23 9:48:00EDT, Solution, [facility]., decrease in dose, 170, cm, 01/29/23 [...] mL, 11 Refills, Maintenance, 03/22/24 12:14:00 EDT, [facility]... Start Date: 03/22/24 Status: Ordered Insulin Syringe, [...] tablet, 3 Refills, Maintenance, 01/26/24 15:08:00 EDT, [facility] #[id number], 164, cm, 01/20/24 13:25:00 EDT, Height, 140, kg, 01/15/24 6:54:00 EDT, Dry Weight Start Date: 01/26/24 Status: Ordered MiraLax oral powder for reconstitution = 17 Gm, By Mouth, Daily, PRN Constipation, dissolve in water before taking, # 255 Gm, 0 Refills, Maintenance, 03/04/23 17:25:00 EDT, REC Powder, [facility] #[id number], Partial fill upon patient request if the [...] 04/28/24 12:08:00 EDT, 03/29/24 12:08:00 EDT, Tablet, [facility] #[id number], Partial fill upon patient request if the prescription is for a schedule II opioid... Start Date: 03/29/24 Stop Date: 04/28/24 Status: Ordered pantiliners pantiliners, See Instructions, # 120 each, Refills 11, Tot. Refills 11, Maintenance, dx: urinary incontinence, diabetic neuropathy ICD10: R32 duration: 99 needs 2 per night, 01/29/23 15:05:00 EDT, Supply Start Date: 01/29/23 Status: Ordered Pen [place], 32 G x 4 mm BD Ultra [...] Gm, 11 Refills, Maintenance, 09/03/23 16:21:00 EST, [facility] #[id number], Partial fill upon patient request if the [...] tablet, 3 Refills, Maintenance, 02/25/24 16:28:00 EDT, [facility], 164, cm, 02/08/24 11:45:00 EDT, [...] 3 Refills, Maintenance, 01/26/24 9:49:00 EDT, Tablet, [facility], Partial fill upon patient request if the prescription is for aschedule II opioid drug., 164, cm, 01/20/24 13:25:0... Start Date: 01/26/24 Stop Date: 05/25/24 Status: Ordered traZODone 100 mg oral tablet 200 mg, 2, tablet, By Mouth, Daily at bedtime, # 60 tablet, Refills 1, Tot. Refills 1, Maintenance,03/22/24 12:14:00 EDT, Route to Pharmacy Electronically, [facility], Partial fill upon patient request if the prescription is for a matthieu... Start Date: 03/22/24 Stop Date: 05/21/24 Status: Ordered traZODone 100 mg oral tablet 150 mg, 1.5, tablet, By Mouth, Daily at bedtime, # 45 tablet, Refills 5, Tot. Refills 5, Maintenance, 09/03/23 16:25:00 EST, Route to Pharmacy Electronically, [facility][id number], 170, cm, 09/03/23 16:31:00 EST, Height, 141.6, kg, 08/04/23 23:... Start Date: 09/03/23 Status: Ordered Trulicity Pen 0.75 mg/0.5 mL subcutaneous solution 0.5 mL = 0.75 mg, Subcutaneous Injection, Every week, for weight loss, # 2 mL, 3 Refills, Maintenance, 03/15/24 16:35:00 EDT, Solution, [facility], Partial fill upon patient request [...] Maintenance, 12/30/23 12:08:00 EDT, [facility], 170, cm, 12/07/23 14:18:00 EDT, Height, 141.6, [...] dependence syndrome Confirmed Active [facility] tel [phone] fax [phone] Social History Social History Type Response Smoking Status 10 or more cigarette s (1/2 pack or more)/day in last 30 days entered on: 11/11/21 Sex Patient Care team information Care Team Personnel Name: Rebeca Pete RN Position: [facility] RN Member Role: Primary Care Nurse Name: Rebeca Khan RN Position: [facility] SN RN Member Role: Primary Care Nurse Name: Adams Joy MD Position: [facility] Renal MD Member Role: Lifetime Consulting Physician Address: Address: [address] [place] [address] [address] [facility] [address]- Name: Korin Solares RN Position: [facility] RN Member Role: Primary Care Nurse Name: Flor Collado RN Position: [facility] Onco RN Member Role: Primary Care Nurse Name: Aliya Latham RN Position: [facility] Rad RN Member Role: Primary Care Nurse Name: Silvia Mejía Position: S Outreach Member Role: Lifetime Consulting Physician Name: Callie Reagan RN Position: [facility] RN Member Role: Primary Care Nurse Name: Korin Lopez RN Position: [facility] RN Member Role: Primary Care Nurse Name: Kim Means Position: [facility] Associate Professional Member Role: Lifetime Consulting Provider Address: Address: [address] [place] [address] [address] [place] [address]- [place] Name: Netta Brown RN Position: [facility] MR W/ Merge Member Role: Primary Care Nurse Name: Marichuy Broussard RN Position: [facility] RN Member Role: Primary Care Nurse Name: Irineo Gale RN Position: [facility] RN Member Role: Primary Care Nurse Name: Radha Gayle RN Position: [facility] AMB Nurse Member Role: Primary Care Nurse Name: Kendall Jasso RN Position: [facility] RN Member Role: Primary Care Nurse Name: Yecenia Quiles RN Position: [facility] RN Member Role: Primary Care Nurse Name: Joanna [place] RN Position: [facility] RN Member Role: Lifetime Consulting Physician Name: Aliya Nuñez NP Position: [facility] PCO Associate Professional Member Role: Primary Care Nurse Address: Address: [address] [place] [address]- Name: Khloe Walsh RN Position: [facility] RN Member Role: Primary Care Nurse Name: Mila Jiang RN Position: [facility] RN Member Role: Primary Care Nurse Name: Darshana Estrada RN Position: [facility] RN Member Role: Primary Care Nurse Name: Hank Velasquez III, RN Position: [facility] RN Member Role: Primary Care Nurse Name: Matais Rivera Position: [facility] Associate Professional Member Role: Lifetime Consulting Provider Address: Address: [address] [place], [place] [id number] [facility] [place] [address]- Name: Leonid Kitchen Jr, RN Position: [facility] ED RN W/OE and Tasks Member Role: Primary Care Nurse Name: Mayur Cadena RN Position: [facility] RN Member Role: Primary Care Nurse Name: Rebeca Jaquez NP Position: [facility] PCO Associate Professional Member Role: Primary Care Nurse Address: Address: [address] [place] [address] [facility] [place] [address]- [place] Name: [place] Bills MD Position: [facility] Renal MD Member Role: Lifetime Consulting Physician Address: Address: [address] [place] [address] [address] [facility] [place] [address]- [place] Name: Jagdeep Delcid RN Position: [facility] RN Member Role: Primary Care Nurse Name: Jen Kirk RN Position: [facility] RN Member Role: Primary Care Nurse Name: Deinsa Garcia RN Position: S RN Member Role: Primary Care Nurse Name: Janiya Mathews Position: [facility] Associate Professional Member Role: Lifetime Consulting Provider Address: Address: [address] [place] [address] [address] [facility] [place] [address]- Name: Galo Jiang MD Position: [facility] Renal MD Member Role: Lifetime Consulting Physician Address: Address: [address] [place] [address] [address] [facility] [place] [address]- Name: Saranya Kaufman RN Position: [facility] OB RN Member Role: Primary Care Nurse Name: Aliya Reeves RN Position: [facility] AMB Nurse Member Role: Primary Care Nurse Name: Trista Pablo RN Position: [facility] RN Member Role: Primary Care Nurse Name: Debbi Hernández RN Position: [facility] RN Member Role: Primary Care Nurse Name: Kristal Alvarez MD Position: [facility] Physician - Primary Care Member Role: PCP Address: Address: [address] [place] [address]- Name: Alyce Esteban RN, I Position: [facility] RN Member Role: Primary Care Nurse Name: Aspen Leon Position: [facility] RN Member Role: Primary Care Nurse Care Team Related Persons Name: CASSIDY CANDIDA FALL Address: home [address] [place] [address] Name: DEEPIKA BENJAMIN Address: home [address] [place] [address] Name: CASSIDY DEEPIKA Address: home [address] [place] [address] Name: ERROL CONWAY
--- OUTSIDE RECORDS SUMMARY | 2024-04-27 10:29 | XMS_ITS | Continuity of Care Document ---
Author Organization [facility] Address [address] [place] [address]- Care Team Providers Care Fisher Trawl Net Name Role Phone Kristal Alvarez MD Primary Care Physician Encounter [facility] Date(s): 02/08/24 - 04/14/[address] [address]- Attending Physician: Marcos Hernandez OD Admitting Physician: Marcos Hernandez OD Referring Physician: Kristal Alvarez MD Allergies, Adverse Reactions, Alerts Substance Reaction Severity [...] 17:30:00 EDT, Aerosol, Route to Pharmacy Electronically, [id number], [facility]., 170, cm, 11/25/22 10:38:0... Start Date: 12/25/22 [...] tablet, 3 Refills, Maintenance, 01/26/24 9:50:00 EDT, [facility], 164, cm, 01/20/24 13:25:00 EDT, Height, 140, kg, 01/15/24 6:54:00 EDT, Dry Weight Start Date: 01/26/24 Stop Date: 01/20/25 Status: Ordered apixaban 5 mg oral tablet 1 tablet = 5 mg, By Mouth, 2 times a day, # 60 tablet, 11 Refills, Maintenance, 07/21/23 16:42:00 EST, Tablet, [facility], Partial fill upon patient request if the prescription is fora schedule II opioid drug., 170, cm, 07/09/23 15:11... Start Date: 07/21/23 Stop Date: 07/15/24 Status: Ordered atorvastatin 20 mg oral tablet 1 tablet, By Mouth, Daily, # 90 tablet, 3 Refills, Maintenance, 05/27/23 9:56:00 EDT, [facility], 170, cm, 05/24/23 15:53:00 EDT, Height, 150, kg, 04/26/23 17:25:00 EDT, Dry Weight Start Date: 05/27/23 Stop Date: 05/21/24 Status: Ordered bisacodyl 10 mg rectal suppository 1 supp = 10 mg, Rectally, Daily, PRN for constipation, # 20 supp, 3 Refills, Maintenance, 09/03/23 16:21:00 EST, Suppository, [facility] #[id number], Partial fill upon patient request if the prescription is for a schedule II opioid drug., 170, cm... Start Date: 09/03/23 Status: Ordered calcium acetate 667 mg oral tablet 3 tablet = 2,001 mg, By Mouth, 3 times a day, # 270 tablet, 0 Refills, Maintenance, 09/23/23 15:50:00 EST, Tablet, [facility] #[id number], Partial fill upon patient request if the prescription is for a schedule II opioid drug., 170, cm, 09/03/23... Start Date: 09/23/23 Stop Date: 10/23/23 Status: Ordered carvedilol 25 mg oral tablet 1, tablet, By Mouth, 2 times a day, # 180 tablet, Refills 3, Tot. Refills 3, Maintenance, 09/23/23 15:50:00 EST, Route to Pharmacy Electronically, [facility] #[id number], 170, cm, 09/03/23 16:31:00 EST, Height, 141.6, [...] 04/21/24 13:29:00 EDT, 03/24/24 13:29:00 EDT, Tablet, [facility] #[id number], Partial fill upon patient request if the [...] Replace Required Details, Route to Pharmacy Electronically, [facility], 164, cm, 02/08/24 11:45:... Start Date: [...] mL, 11 Refills, Maintenance, 03/25/23 9:48:00EDT, Solution, [facility], decrease in dose, 170, cm, 01/29/23 [...] mL, 11 Refills, Maintenance, 03/22/24 12:14:00 EDT, [facility].. Start Date: 03/22/24 Status: Ordered Insulin [...] tablet, 3 Refills, Maintenance, 01/26/24 15:08:00 EDT, [facility] #[id number], 164, cm, 01/20/24 13:25:00 EDT, Height, 140, kg, 01/15/24 6:54:00 EDT, Dry Weight Start Date: 01/26/24 Status: Ordered MiraLax oral powder for reconstitution = 17 Gm, By Mouth, Daily, PRN Constipation, dissolve in water before taking, # 255 Gm, 0 Refills, Maintenance, 03/04/23 17:25:00 EDT, REC Powder, [facility] #[id number], Partial fill upon patient request if the [...] 04/28/24 12:08:00 EDT, 03/29/24 12:08:00 EDT, Tablet, [facility] #[id number], Partial fill upon patient request if the prescription is for a schedule II opioid... Start Date: 03/29/24 Stop Date: 04/28/24 Status: Ordered pantiliners pantiliners, See Instructions, # 120 each, Refills 11, Tot. Refills 11, Maintenance, dx: urinary incontinence, diabetic neuropathy ICD10: R32 duration: 99 needs 2 per night, 01/29/23 15:05:00 EDT, Supply Start Date: 01/29/23 Status: Ordered Pen [place], 32 G x 4 mm BD Ultra [...] Gm, 11 Refills, Maintenance, 09/03/23 16:21:00 EST, [facility] #[id number], Partial fill upon patient request if the [...] tablet, 3 Refills, Maintenance, 02/25/24 16:28:00 EDT, [facility], 164, cm, 02/08/24 11:45:00 EDT, Height, [...] 3 Refills, Maintenance, 01/26/24 9:49:00 EDT, [facility], Partial fill upon patient request if the prescription is for aschedule II opioid drug., 164, cm, 01/20/24 13:25:0... Start Date: 01/26/24 Stop Date: 05/25/24 Status: Ordered traZODone 100 mg oral tablet 200 mg, 2, tablet, By Mouth, Daily at bedtime, # 60 tablet, Refills 1, Tot. Refills 1, Maintenance,03/22/24 12:14:00 EDT, Route to Pharmacy Electronically, [facility], Partial fill upon patient request if the prescription is for a matthieu... Start Date: 03/22/24 Stop Date: 05/21/24 Status: Ordered traZODone 100 mg oral tablet 150 mg, 1.5, tablet, By Mouth, Daily at bedtime, # 45 tablet, Refills 5, Tot. Refills 5, Maintenance, 09/03/23 16:25:00 EST, Route to Pharmacy Electronically, [facility] #[id number], 170, cm, 09/03/23 16:31:00 EST, Height, 141.6, kg, 08/04/23 23:... Start Date: 09/03/23 Status: Ordered Trulicity Pen 0.75 mg/0.5 mL subcutaneous solution 0.5 mL = 0.75 mg, Subcutaneous Injection, Every week, for weight loss, # 2 mL, 3 Refills, Maintenance, 03/15/24 16:35:00 EDT, Solution, [facility], Partial fill upon patient request if [...] tablet, 3 Refills, Maintenance, 12/30/23 12:08:00 EDT, [facility] 170, cm, 12/07/23 14:18:00 [...] dependence syndrome Confirmed Active [facility] tel [phone] fax [phone] Social History Social History Type Response Smoking Status 10 or more cigarette s (1/2 pack or more)/day in last 30 days entered on: 11/11/21 Sex Patient Care team information Care Team Personnel Name: Rebeca Pete RN Position: [facility] RN Member Role: Primary Care Nurse Name: Rebeca Khan RN Position: [facility] SN RN Member Role: Primary Care Nurse Name: Adams Joy MD Position: [facility] Renal MD Member Role: Lifetime Consulting Physician Address: Address: [address] [place] [address] [address] [place] [address]- Name: Korin Solares RN Position: [facility] RN Member Role: Primary Care Nurse Name: Flor Collado RN Position: [facility] Onco RN Member Role: Primary Care Nurse Name: Aliya Latham RN Position: [facility] Rad RN Member Role: Primary Care Nurse Name: Silvia Mejía Position: [facility] Outreach Member Role: Lifetime Consulting Physician Name: Callie Reagan RN Position: [facility] RN Member Role: Primary Care Nurse Name: Korin Lopez RN Position: [facility] RN Member Role: Primary Care Nurse Name: Kim Means Position: [facility] Associate Professional Member Role: Lifetime Consulting Provider Address: Address: [address] [place] [address] [address] [facility] [place] [address]- Name: Netta Brown RN Position: [facility] MR W/ Merge Member Role: Primary Care Nurse Name: Marichuy Broussard RN Position: [facility] RN Member Role: Primary Care Nurse Name: Irineo Gale RN Position: [facility] RN Member Role: Primary Care Nurse Name: Radha Gayle RN Position: [facility] AMB Nurse Member Role: Primary Care Nurse Name: Kendall Jasso RN Position: [facility] RN Member Role: Primary Care Nurse Name: Yecenia Quiles RN Position: [facility] RN Member Role: Primary Care Nurse Name: Joanna [place] RN Position: [facility] RN Member Role: Lifetime Consulting Physician Name: Aliya Nuñez NP [facility] Associate Professional Member Role: Primary Care Nurse Address: Address: [address] [place] [address]- Name: Khloe Walsh RN Position: [facility] RN Member Role: Primary Care Nurse Name: Mila Jiang RN Position: [facility] RN Member Role: Primary Care Nurse Name: Darshana Estrada RN Position: [facility] RN Member Role: Primary Care Nurse Name: Yaritza Velasquez III, RN Position: [facility] RN Member Role: Primary Care Nurse Name: Matias Rivera Position: [facility] Associate Professional Member Role: Lifetime Consulting Provider Address: Address: [address] [place] [address]- Name: Leonid Kitchen Jr, RN Position: [facility] AMBERLY RN W/OE and Tasks Member Role: Primary Care Nurse Name: Mayur Cadena RN Position: [facility] RN Member Role: Primary Care Nurse Name: Rebeca Jaquez NP Position: [facility] PCO Associate Professional Member Role: Primary Care Nurse Address: Address: [address] [facility] [place] [address]- [place] Name: [place] Bills MD Position: [facility] Renal MD Member Role: Lifetime Consulting Physician Address: Address: [address] [facility] [place] [address]- [place] Name: Jagdeep Delcid RN Position: [facility] RN Member Role: Primary Care Nurse Name: Jen Kirk RN Position: [facility] RN Member Role: Primary Care Nurse Name: Denisa Garcia RN Position: [facility] RN Member Role: Primary Care Nurse Name: Janiya Mathews Position: [facility] Associate Professional Member Role: Lifetime Consulting Provider Address: Address: [address] [facility] [place] [address]- [place] Name: Galo Jiang MD Position: [facility] Renal MD Member Role: Lifetime Consulting Physician Address: Address: [address] [facility] [place] [address]- [place] Name: Saranya Kaufman RN Position: [facility] OB RN Member Role: Primary Care Nurse Name: Aliya Reeves RN Position: [facility] AMB Nurse Member Role: Primary Care Nurse Name: Trista Pablo RN Position: [facility] RN Member Role: Primary Care Nurse Name: Debbi Hernández RN Position: [facility] RN Member Role: Primary Care Nurse Name: Kristal Alvarez MD Position: [facility] Physician - Primary Care Member Role: PCP Address: Address: [address] [place] [address]- [place] Name: Alyce Esteban RN, I Position: [facility] RN Member Role: Primary Care Nurse Name: Aspen Leon Position: [facility] RN Member Role: Primary Care Nurse Care Team Related Persons Name: CASSIDY FALLANNIEBREONNARual Address: home [address] [place] [address] Name: DEEPIKA BENJAMIN Address: [address] [place] [address] Name: DEEPIKA BENJAMIN Address: [address] [place] [address] Name: ERROL CONWAY
== END ==
PROVIDERS: PCP Internal Medicine; Visit Provider Internal Medicine Nephrology
DX: N18.6 End stage renal disease (principal)
CPT/HCPCS: 90962

== ENCOUNTER → 2024-04-25 | Outpatient (BNV) | payer OTHER, SELFPAY | PROVIDERS: PCP Internal Medicine; Visit Provider Internal Medicine Nephrology | DX: N18.6 End stage renal disease (principal) | CPT/HCPCS: 90962 ==

== ENCOUNTER → 2024-05-26 | Outpatient (BNV) | payer OTHER, SELFPAY | PROVIDERS: PCP Internal Medicine; Visit Provider Internal Medicine Nephrology | DX: N18.6 End stage renal disease (principal) | CPT/HCPCS: 90962 ==

== ENCOUNTER → 2024-06-25 | Outpatient (BNV) | payer OTHER, SELFPAY | PROVIDERS: PCP Internal Medicine; Visit Provider Internal Medicine Nephrology | DX: N18.6 End stage renal disease (principal) | CPT/HCPCS: 90962 ==

== ENCOUNTER → 2024-07-26 | Outpatient (BNV) | payer OTHER, SELFPAY | PROVIDERS: PCP Internal Medicine; Visit Provider Internal Medicine Nephrology | DX: N18.6 End stage renal disease (principal) | CPT/HCPCS: 90962 ==

== ENCOUNTER → 2024-08-26 | Outpatient (BNV) | payer OTHER, SELFPAY | PROVIDERS: PCP Internal Medicine; Visit Provider Internal Medicine Nephrology | DX: N18.6 End stage renal disease (principal) | CPT/HCPCS: 90962 ==

== ENCOUNTER → 2024-09-23 | Outpatient (BNV) | payer OTHER, SELFPAY | PROVIDERS: PCP Internal Medicine; Visit Provider Internal Medicine Nephrology | DX: N18.6 End stage renal disease (principal) | CPT/HCPCS: 90961 ==

== ENCOUNTER → 2024-10-24 | Outpatient (BNV) | payer OTHER, SELFPAY | PROVIDERS: PCP Internal Medicine; Visit Provider Internal Medicine Nephrology | DX: N18.6 End stage renal disease (principal) | CPT/HCPCS: 90962 ==

== ENCOUNTER → 2025-01-23 23:59 | Outpatient (BNV) | payer OTHER, SELFPAY | PROVIDERS: PCP Internal Medicine; Visit Provider Internal Medicine Nephrology | DX: N18.6 End stage renal disease (principal) | CPT/HCPCS: 90962 ==

== ENCOUNTER → 2025-03-26 23:59 | Outpatient (BNV) | payer OTHER, SELFPAY | PROVIDERS: PCP Internal Medicine; Visit Provider Internal Medicine Nephrology | DX: N18.6 End stage renal disease (principal) | CPT/HCPCS: 90962 ==

== ENCOUNTER → 2025-04-25 23:59 | Outpatient (BNV) | payer OTHER, SELFPAY | PROVIDERS: PCP Internal Medicine; Visit Provider Internal Medicine Nephrology | DX: N18.6 End stage renal disease (principal) | CPT/HCPCS: 90962 ==

== ENCOUNTER → 2025-05-26 23:59 | Outpatient (BNV) | payer OTHER, SELFPAY | PROVIDERS: PCP Internal Medicine; Visit Provider Internal Medicine Nephrology | DX: N18.6 End stage renal disease (principal) | CPT/HCPCS: 90962 ==

== ENCOUNTER → 2025-06-25 23:59 | Outpatient (BNV) | payer OTHER, SELFPAY | PROVIDERS: PCP Internal Medicine; Visit Provider Internal Medicine Nephrology | DX: N18.6 End stage renal disease (principal) | CPT/HCPCS: 90962 ==